=== PATIENT | female | born 1980 | race African-American/Black ===

== ENCOUNTER 2016-11-23 21:38 | Inpatient (IN) | payer BC, OTHER ==
[~2016-11-23] VITALS: Ht 157.5 cm; Wt 141.2 kg
[~2016-11-23 21:38] MED LIST: ACET-704 PO; AMLO1CAP10 PO; LEVO50TA PO; METH250T PO; PNV1TABL25 PO
[2016-11-23] MEDS ORDERED: METOCLOPRAMIDE HCL 10 MG/2 ML VIAL. IV ONE (22:00)
[2016-11-23] MEDS ORDERED: DIPHENHYDRAMINE 50 MG/ML VIAL IVP ONE (22:00)
[2016-11-23] MEDS ORDERED: KETOROLAC TROMETHAMINE 30 MG/ML SYRINGE. IV ONE (22:00)
[2016-11-23] MEDS ORDERED: hydrALAZINE 20 MG/ML VIAL. IVP ONE (22:00)
[2016-11-23] MEDS ORDERED: DEXAMETHASONE SOD PHOS 20 MG/5 ML VIAL. IV ONE (22:00)
--- NOTE | 2016-11-23 22:02 | PHYS DOC ---
Past Medical History Past Medical History: Hypertension Past Surgical History: Tubal ligation Alcohol Use: None Drug Use: None Adult General Chief Complaint Chief Complaint: HEADACHE HPI HPI This is a 36-year-old female with known history of hypertension that has not been taking her medications for the last year. Patient was on methyldopa during her and was on multiple medications prior to her for blood pressure but states she has not followed up since she gave . She states for the last 2 or 3 days she's had significant occipital headache that does radiate somewhat into her frontal area with associated photophobia but no nausea or vomiting. She states she's had a similar headache before approximate 3 years ago. She denies any other history than hypertension. Upon arrival, her blood pressure is not controlled and is 220/120. He is in no acute distress upon my examination. She denies any chest pain or shortness of breath. She denies any dizziness or lightheadedness. She denies any numbness or tingling in her arms or legs. Review of Systems Review of Systems Constitutional: Denies fever or chills [] Eyes: Denies change in visual acuity, redness, or eye pain [] HENT: Denies nasal congestion or sore throat [] Respiratory: Denies cough or shortness of breath [] Cardiovascular: No additional information not addressed in HPI [] GI: Denies abdominal pain, nausea, vomiting, bloody stools or diarrhea [] : Denies dysuria or hematuria [] Musculoskeletal: Denies back pain or joint pain [] Integument: Denies rash or skin lesions [] Neurologic: Has headache, denies focal weakness or sensory changes [] Endocrine: Denies polyuria or polydipsia [] Current Medications Current Medications Current Medications Medications (Trade) Dose Ordered Sig/Sharmaine Start Time Stop Time Status Last Admin Dose Admin Acetaminophen (Tylenol) 650 mg PRN Q4HRS PRN 11/23/16 23:30 11/24/16 23:29 Dexamethasone Sodium Phosphate 10 mg 10 mg 1X ONCE 11/23/16 22:00 11/23/16 22:01 DC 11/23/16 22:48 10 MG Diphenhydramine HCl (Benadryl) 25 mg 1X ONCE 11/23/16 22:00 11/23/16 22:01 DC 11/23/16 22:45 25 MG Fentanyl Citrate (Fentanyl 2ml Vial) 50 mcg PRN Q2HR PRN 11/23/16 23:30 11/24/16 23:29 Hydralazine HCl (Apresoline) 10 mg 1X ONCE 11/23/16 22:00 11/23/16 22:01 DC 11/23/16 22:36 10 MG Ketorolac Tromethamine (Toradol) 30 mg 1X ONCE 11/23/16 22:00 11/23/16 22:01 DC 11/23/16 23:03 30 MG Metoclopramide HCl (Reglan) 10 mg 1X ONCE 11/23/16 22:00 11/23/16 22:01 DC 11/23/16 22:40 10 MG Nicardipine HCl/ Sodium Chloride (Cardene/Iv Sodium Chloride 0.9% 250ml) 270 ml @ 0 mls/hr CONT PRN 11/23/16 23:30 Ondansetron HCl (Zofran) 4 mg PRN Q8HRS PRN 11/23/16 23:30 11/24/16 23:29 Allergies Allergies Allergies Coded Allergies Type Severity Reaction Last Updated Verified No Known Drug Allergies 01/17/16 No Physical Exam Physical Exam Constitutional: Well developed, well nourished, no acute distress, non-toxic appearance. [] HENT: Normocephalic, atraumatic, bilateral external ears normal, oropharynx moist, no oral exudates, nose normal. [] Eyes: PERRLA, EOMI, conjunctiva normal, no discharge. [] Neck: Normal range of motion, no tenderness, supple, no stridor. [] Cardiovascular:Heart rate regular rhythm, no murmur [] Lungs & Thorax: Bilateral breath sounds clear to auscultation [] Abdomen: Bowel sounds normal, soft, no tenderness, no masses, no pulsatile masses. [] Skin: Warm, dry, no erythema, no rash. [] Back: No tenderness, no CVA tenderness. [] Extremities: No tenderness, no cyanosis, no clubbing, ROM intact, no edema. [] Neurologic: Alert and oriented X 3, normal motor function, normal sensory function, no focal deficits noted. [] Psychologic: Affect normal, judgement normal, mood normal. [] Current Patient Data Vital Signs Vital Signs Date Time Temp Pulse Resp B/P Pulse Ox O2 Delivery O2 Flow Rate FiO2 11/23/16 23:23 98 192/92 99 Room Air 11/23/16 21:44 98.0 20 98.0 Lab Values Laboratory Tests Test 11/23/16 22:30 11/23/16 22:37 White Blood Count 7.7x10^3/uL (4.0-11.0) Red Blood Count 4.61x10^6/uL (3.50-5.40) Hemoglobin 10.9g/dL (12.0-15.5) L Hematocrit 34.8% (36.0-47.0) L Mean Corpuscular Volume 76fL (79-100) L Mean Corpuscular Hemoglobin 24pg (25-35) L Mean Corpuscular Hemoglobin Concent 31g/dL (31-37) Red Cell Distribution Width 16.4% (11.5-14.5) H Platelet Count 381x10^3/uL (140-400) Neutrophils (%) (Auto) 56% (31-73) Lymphocytes (%) (Auto) 36% (24-48) Monocytes (%) (Auto) 5% (0-9) Eosinophils (%) (Auto) 2% (0-3) Basophils (%) (Auto) 1% (0-3) Neutrophils # (Auto) 4.3x10^3uL (1.8-7.7) Lymphocytes # (Auto) 2.8x10^3/uL (1.0-4.8) Monocytes # (Auto) 0.4x10^3/uL (0.0-1.1) Eosinophils # (Auto) 0.2x10^3/uL (0.0-0.7) Basophils # (Auto) 0.1x10^3/uL (0.0-0.2) Urine Collection Type Unknown Urine Color Yellow Urine Clarity Clear Urine pH 7.5 Urine Specific [place] 1.015 Urine Protein Negativemg/dL (NEG-TRACE) Urine Glucose (UA) Negativemg/dL (NEG) Urine Ketones (Stick) Negativemg/dL (NEG) Urine Blood Negative (NEG) Urine Nitrite Negative (NEG) Urine Bilirubin Negative (NEG) Urine Urobilinogen Dipstick 1.0mg/dL (0.2 mg/dL) Urine Leukocyte Esterase Trace (NEG) Urine RBC 0/HPF (0-2) Urine WBC 5-10/HPF (0-4) Urine Squamous Epithelial Cells Mod/LPF Urine Bacteria Few/HPF (0-FEW) Urine Mucus Slight/LPF Urine Test Negative (NEG) Sodium Level 143mmol/L (136-145) Potassium Level 3.8mmol/L (3.5-5.1) Chloride Level 105mmol/L (98-107) Carbon Dioxide Level 28mmol/L (21-32) Anion Gap 10 (6-14) Blood Urea Nitrogen 12mg/dL (7-20) Creatinine 0.9mg/dL (0.6-1.0) Estimated GFR (Cockcroft-Gault) 84.8 Glucose Level 99mg/dL (70-99) Calcium Level 8.7mg/dL (8.5-10.1) POC Urine HCG, Qualitative Hcg negative (Negative) Laboratory Tests 11/23/16 22:30 Laboratory Tests 11/23/16 22:30 EKG EKG EkG as interpreted by me shows sinus rhythm with rate of 91 bpm. There is some mild ST abnormalities in V4 to V6 but no obvious ischemic findings. Radiology/Procedures Radiology/Procedures [] Course & Med Decision Making Course & Med Decision Making Pertinent Labs and Imaging studies reviewed. (See chart for details) 36-year-old female with uncontrolled hypertension will be given a dose of hydralazine and an IV migraine cocktail. Laboratory workup will be obtained including CT of her head. I'll reassess her multiple times. I control her pain and get her blood pressure controlled I will start her on low dose of blood pressure medications and give her follow-up instructions with her primary care doctor. If I'm unable to control her headache or her blood pressure I will be admitting her to the hospital. Upon my second reassessment, the patient's headache has improved but her blood pressure has remained extremely elevated 207/103 despite IV hydralazine dose. I will be admitting her for hypertensive urgency. I will order cardene drip and be admitting her to the [facility] under Dr. Healy. The case was discussed with Dr. Healy who agreed to accept the patient for her ongoing elevated blood pressure. Cardene drip was ordered to control her blood pressure. Her laboratory workup has been unremarkable. Pt at this time is refusing head CT because she has significant claustrophobia. Dragon Disclaimer Dragon Disclaimer This electronic medical record was generated, in whole or in part, using a voice recognition dictation system. Departure Departure Impression: Primary Impression: Hypertensive urgency Additional Impression: Headache Disposition: 09 ADMITTED INPATIENT Admitting Physician: Radha Healy Condition: STABLE Referrals: RADHA HEALY MD (PCP) Problem Qualifiers MICHAEL ORTIZ DO Nov 23, 2016 22:02
[2016-11-23 22:38] LABS: BASO # 0.1 x10^3/uL (0.0-0.2); BASO % 1 % (0-3); EOS % 2 % (0-3); HEMATOCRIT 34.8 % (36.0-47.0); HEMOGLOBIN 10.9 g/dL (12.0-15.5); LYMPH # 2.8 x10^3/uL (1.0-4.8); LYMPH % 36 % (24-48); MEAN CORPUSCULAR HEMOGLOBIN 24 pg (25-35); MEAN CORPUSCULAR HGB CONC 31 g/dL (31-37); MEAN CORPUSCULAR VOLUME 76 fL (79-100); MONO % 5 % (0-9); NEUT % 56 % (31-73); PLATELET COUNT 381 x10^3/uL (140-400); RED BLOOD COUNT 4.61 x10^6/uL (3.50-5.40); RED CELL DISTRIBUTION WIDTH 16.4 % (11.5-14.5); WHITE BLOOD COUNT 7.7 x10^3/uL (4.0-11.0)
[2016-11-23 22:50] LABS: CALCIUM 8.7 mg/dL (8.5-10.1); CREATININE 0.9 mg/dL (0.6-1.0); GFR 84.8; POTASSIUM 3.8 mmol/L (3.5-5.1)
[2016-11-23 23:22] LABS: BILIRUBIN,URINE NEGATIVE (NEG); GLUCOSE,URINE NEGATIVE (NEG); NITRITE,URINE NEGATIVE (NEG); PH,URINE 7.5; PROTEIN,URINE NEGATIVE (NEG-TRACE)
[2016-11-23 23:26] LABS: NEG OBC UR NEG; POS OBC UR POS
[2016-11-23] MEDS ORDERED: ONDANSETRON PF 4 MG/2 ML VIAL. IV PRN (23:30)
[2016-11-23] MEDS ORDERED: FENTANYL PF 100 MCG/2 ML VIAL. IV PRN (23:30)
[2016-11-23] MEDS ORDERED: NICARDIPINE HCL 50 MG in IV NORMAL SALINE 250ML 250 ML IV PRN (23:30)
[2016-11-23 23:31] LABS: BACTERIA,URINE FEW /HPF (0-FEW); RBC,URINE 0 /HPF (0-2); SQUAMOUS EPITHELIAL CELL,UR MOD /LPF
[2016-11-24] VITALS (8 sets, daily range): BP systolic 140–180; BP diastolic 74–108
--- NOTE | 2016-11-24 00:56 | ACF ---
Admission Forms Criteria HYPERTENSION Clinical Indications for Admission to Inpatient Care ( Place "X" for any and all applicable criteria): Admission is indicated for ANY ONE of the following(1)(2)(3)(4): [ ]I. Hypertensive emergency, with evidence of acute and progressing target organ disease as indicated by ANY ONE of the following: [ ]a) Hypertensive encephalopathy (eg, confusion, altered mental status) [ ]b) Cerebral infarction [ ]c) Intracranial hemorrhage [ ]d) Myocardial ischemia or infarction [ ]e) Pulmonary edema [ ]f) Aortic dissection [ ]g) Seizure [ ]h) Acute renal insufficiency [ ]i) Papilledema [ ]j) Microangiopathic hemolytic anemia [ ]II. Adrenergic crisis (eg, severe hypertension due to pheochromocytoma crisis, cocaine or amphetamine intoxication, or clonidine withdrawal) [X]III. Severe hypertension (SBP greater than 180 mmHg or DBP greater than 110 mmHg or greater than the 95th percentile for age, gender, and height in pediatric patients) that cannot be controlled (eg, to SBP less than 160 mmHg and DBP less than 100 mmHg in adults) by treatment with oral medication in emergency department or observation care Extended stay beyond goal length of stay may be needed for(11)(12)(13): [ ]a) Persistent hypertensive encephalopathy [ ]b) Continuation of pulmonary edema [ ]c) Recurring or persistent severe hypertension [ ]d) Target organ damage (eg, angina, stroke, aortic dissection) [ ]e) Associated renal insufficiency The original [email or web address] content created by [employer] has been revised. The portions of the content which have been revised are identified through the use of italic text or in bold, and [facility] has neither reviewed nor approved the modified material. All other unmodified content is copyright [facility]. Please see references footnoted in the original [facility] edition 2016 Admission Criteria Met?: Yes JAYDEN LAGUNAS Nov 24, 2016 00:56
[2016-11-24] MEDS ORDERED: hydrALAZINE 20 MG/ML VIAL. IVP PRN (01:15)
[2016-11-24 05:30] LABS: BASO % 0 % (0-3); EOS % 0 % (0-3); HEMATOCRIT 34.9 % (36.0-47.0); HEMOGLOBIN 10.9 g/dL (12.0-15.5); LYMPH # 0.9 x10^3/uL (1.0-4.8); LYMPH % 8 % (24-48); MEAN CORPUSCULAR HEMOGLOBIN 24 pg (25-35); MEAN CORPUSCULAR HGB CONC 31 g/dL (31-37); MEAN CORPUSCULAR VOLUME 75 fL (79-100); MONO % 0 % (0-9); NEUT % 91 % (31-73); PLATELET COUNT 379 x10^3/uL (140-400); RED BLOOD COUNT 4.64 x10^6/uL (3.50-5.40); RED CELL DISTRIBUTION WIDTH 16.4 % (11.5-14.5); WHITE BLOOD COUNT 10.9 x10^3/uL (4.0-11.0)
[2016-11-24 05:51] LABS: CALCIUM 8.9 mg/dL (8.5-10.1); CREATININE 1.1 mg/dL (0.6-1.0); GFR 67.3; POTASSIUM 3.6 mmol/L (3.5-5.1)
--- NOTE | 2016-11-24 06:28 | EKG ---
[facility] [address] [place] [address] Test Date: 2016-11-23 Test Time: 23:37:46 Pat Name: KRISSY CASEY Department: Room: 262 1 Gender: F In[place]: ELIZABETH EMT : 1980 Requested By: MICHAEL ORTIZ Order Number: [id number] Reading MD: Olive Waller Measurements Intervals [place] Rate: 91 P: 68 OK: 134 QRS: 16 QRSD: 90 T: -26 QT: 350 QTc: 432 Interpretive Statements SINUS RHYTHM LEFT ATRIAL ABNORMALITY ST & T ABNORMALITY, CONSIDER INFERIOR ISCHEMIA ABNORMAL ECG Electronically Signed On 11-26-2016 20:11:21 NAIL SETTER by Olive Waller
[2016-11-24] MEDS: ACETAMINOPHEN 325 MG TABLET. PO PRN ×2 (08:28→19:43)
[2016-11-24] MEDS ORDERED: FLU VACC QUAD 2016-17 (36MOS+)/PF 0.5 ML SYRINGE. VAX IM ONE (09:00)
--- NOTE | 2016-11-24 09:41 | PDOC ---
OBJECTIVE Vital Signs Vital Signs Date Time Temp Pulse Resp B/P Pulse Ox O2 Delivery O2 Flow Rate FiO2 11/24/16 07:55 Room Air 11/24/16 07:32 97.8 87 18 156/108 96 Room Air 97.8 11/24/16 03:48 98.5 95 16 180/98 97 Room Air 98.5 11/24/16 02:58 98.2 100 18 180/102 98 Room Air 98.2 11/24/16 02:34 Room Air 11/24/16 00:55 102 154/72 97 Room Air 11/24/16 00:45 102 168/77 95 Room Air 11/24/16 00:35 98 163/75 99 Room Air 11/24/16 00:23 105 169/69 11/24/16 00:14 107 161/88 97 Room Air 11/24/16 00:04 107 187/98 98 Room Air 11/23/16 23:58 98 191/97 98 Room Air 11/23/16 23:54 95 192/97 99 Room Air 11/23/16 23:45 102 191/102 98 Room Air 11/23/16 23:23 98 192/92 99 Room Air 11/23/16 23:03 97 196/91 97 Room Air 11/23/16 22:43 85 207/98 99 Room Air 11/23/16 22:36 100 209/106 11/23/16 22:33 91 224/104 Room Air 11/23/16 21:56 94 209/106 95 Room Air 11/23/16 21:44 98.0 96 20 96 Room Air 98.0 I & O Intake and Output 11/24/16 07:00 Intake Total 200 ml Balance 200 ml Intake Oral 200 ml # Voids 1 ASSESSMENT/PLAN Assessment/Plan [id number] H7P dictated Problems: COMMENT Lab Laboratory Tests Test 11/23/16 22:30 11/23/16 22:37 11/24/16 05:00 White Blood Count 7.7x10^3/uL (4.0-11.0) 10.9x10^3/uL (4.0-11.0) Red Blood Count 4.61x10^6/uL (3.50-5.40) 4.64x10^6/uL (3.50-5.40) Hemoglobin 10.9g/dL (12.0-15.5) 10.9g/dL (12.0-15.5) Hematocrit 34.8% (36.0-47.0) 34.9% (36.0-47.0) Mean Corpuscular Volume 76fL (79-100) 75fL (79-100) Mean Corpuscular Hemoglobin 24pg (25-35) 24pg (25-35) Mean Corpuscular Hemoglobin Concent 31g/dL (31-37) 31g/dL (31-37) Red Cell Distribution Width 16.4% (11.5-14.5) 16.4% (11.5-14.5) Platelet Count 381x10^3/uL (140-400) 379x10^3/uL (140-400) Neutrophils (%) (Auto) 56% (31-73) 91% (31-73) Lymphocytes (%) (Auto) 36% (24-48) 8% (24-48) Monocytes (%) (Auto) 5% (0-9) 0% (0-9) Eosinophils (%) (Auto) 2% (0-3) 0% (0-3) Basophils (%) (Auto) 1% (0-3) 0% (0-3) Neutrophils # (Auto) 4.3x10^3uL (1.8-7.7) 9.9x10^3uL (1.8-7.7) Lymphocytes # (Auto) 2.8x10^3/uL (1.0-4.8) 0.9x10^3/uL (1.0-4.8) Monocytes # (Auto) 0.4x10^3/uL (0.0-1.1) 0.0x10^3/uL (0.0-1.1) Eosinophils # (Auto) 0.2x10^3/uL (0.0-0.7) 0.0x10^3/uL (0.0-0.7) Basophils # (Auto) 0.1x10^3/uL (0.0-0.2) 0.0x10^3/uL (0.0-0.2) Urine Collection Type Unknown Urine Color Yellow Urine Clarity Clear Urine pH 7.5 Urine Specific [place] 1.015 Urine Protein Negativemg/dL (NEG-TRACE) Urine Glucose (UA) Negativemg/dL (NEG) Urine Ketones (Stick) Negativemg/dL (NEG) Urine Blood Negative (NEG) Urine Nitrite Negative (NEG) Urine Bilirubin Negative (NEG) Urine Urobilinogen Dipstick 1.0mg/dL (0.2 mg/dL) Urine Leukocyte Esterase Trace (NEG) Urine RBC 0/HPF (0-2) Urine WBC 5-10/HPF (0-4) Urine Squamous Epithelial Cells Mod/LPF Urine Bacteria Few/HPF (0-FEW) Urine Mucus Slight/LPF Urine Test Negative (NEG) Sodium Level 143mmol/L (136-145) 141mmol/L (136-145) Potassium Level 3.8mmol/L (3.5-5.1) 3.6mmol/L (3.5-5.1) Chloride Level 105mmol/L (98-107) 105mmol/L (98-107) Carbon Dioxide Level 28mmol/L (21-32) 23mmol/L (21-32) Anion Gap 10 (6-14) 13 (6-14) Blood Urea Nitrogen 12mg/dL (7-20) 11mg/dL (7-20) Creatinine 0.9mg/dL (0.6-1.0) 1.1mg/dL (0.6-1.0) Estimated GFR (Cockcroft-Gault) 84.8 67.3 Glucose Level 99mg/dL (70-99) 194mg/dL (70-99) Calcium Level 8.7mg/dL (8.5-10.1) 8.9mg/dL (8.5-10.1) Bedside Urine HCG, Qualitative Hcg negative (Negative) RADHA HEALY MD Nov 24, 2016 09:41
[2016-11-24 10:18] LABS: CHOLESTEROL/HDL RATIO 3.4
[2016-11-24 10:30] LABS: ANISOCYTOSIS PRESENT; HYPOCHROMIA PRESENT; PLT ESTIMATE ADEQUATE (ADEQUATE)
[2016-11-24] MEDS: METOPROLOL SUCC 24HR ER 100 MG TAB.ER.24H. PO SCH (11:09)
[2016-11-24] MEDS: LOSARTAN POTASSIUM 50 MG TABLET. PO SCH (11:10)
[2016-11-24] MEDS: ASPIRIN ENTERIC COATED 81 MG TABLET.DR. PO SCH (11:10)
[2016-11-24] MEDS: AMLODIPINE BESYLATE 10 MG TABLET PO SCH (11:12)
--- NOTE | 2016-11-24 11:25 | HP ---
ADMIT DATE: 11/23/2016 HISTORY OF PRESENT ILLNESS: The patient is a 36-year-old lady who presented to the Emergency Room complaining of headache and hypertension. She does have a previous history of hypertension. She was and had ____ October. She was on methyldopa during . She has not been taking any blood pressure medication. Over the last 3 days, she has been having severe headache in the occipital area radiating into the frontal area. She denies nausea or vomiting. Denies chest pain. She does have dyspnea on exertion. Her blood pressure in the Emergency Room was 220/120. She was not able to have a CT scan of the head due to claustrophobia her headache improved after the blood pressure was down with medication. She denies numbness or tingling in her arms or legs. PAST MEDICAL HISTORY: Significant for hypertension, hypertensive cardiovascular disease. She had a cholecystectomy last year, obesity. She does have gastroesophageal reflux disease, tubal ligation, previous history of UTIs, back pain, anxiety. SOCIAL HISTORY: She is a smoker. She uses alcohol occasionally. Denies other drugs. FAMILY HISTORY: Positive for hypertension. REVIEW OF SYSTEMS: CONSTITUTIONAL: Denies fever or chills. EYES: Denies visual changes. HENT: Denies nasal congestion or sore throat. RESPIRATORY: Denies cough, but does have dyspnea on exertion. CARDIOVASCULAR: Denies chest pain. GASTROINTESTINAL: Denies abdominal pain, nausea, vomiting or diarrhea. GENITOURINARY: Denies dysuria. She does have stress incontinence. MUSCULOSKELETAL: She does have back pain and arthritis. NEUROLOGY: She does have headache that improved after her blood pressure was decreased. She does not have any focal weakness or sensory changes. PHYSICAL EXAMINATION: GENERAL: She is alert and oriented, in no acute distress. HEENT: Her tympanic membranes clear. Pharynx is clear. No sinus tenderness. NECK: Supple. No JVD or bruit or cervical adenopathy. LUNGS: Clear to auscultation. HEART: Regular rate and rhythm. ABDOMEN: Soft, nontender. No organomegaly, no masses, no bruits, no ascites. EXTREMITIES: No edema, clubbing or cyanosis. IMPRESSION: 1. Hypertension emergency and urgency. The patient was on nicardipine drip to control her blood pressure. 2. Obesity. 3. Suspected sleep apnea. 4. Hyperglycemia. We will check hemoglobin A1c and monitor blood sugar. 5. Anemia due to heavy periods. 6. Gastroesophageal reflux disease. RADHA HEALY MD DR: NEAL/ricarda JOB#: [id number] / [id number]
--- NOTE | 2016-11-24 13:59 | CARD ---
APPROVED REPORT EXAM: Two-dimensional and M-mode echocardiogram with Doppler and color Doppler. Other Information Quality : Good INDICATION Hypertension/HCVD RISK FACTORS Obesity 2D DIMENSIONS RVDd2.7 (2.9-3.5cm)Left Atrium(2D)4.5 (1.6-4.0cm) IVSd1.4 (0.7-1.1cm)Aortic Root(2D)2.9 (2.0-3.7cm) LVDd5.2 (3.9-5.9cm)LVOT Diameter2.2 (1.8-2.4cm) PWd1.3 (0.7-1.1cm)LVDs4.0 (2.5-4.0cm) FS (%) 27.5 %SV59.1 ml LVEF(%)55.0 (>50%) Aortic Valve AoV Peak Jaret.163.0cm/sAoV VTI31.9cm AO Peak GR.10.6mmHgLVOT Peak Jaret.129.1cm/s LVOT VTI 25.86cmAO Mean GR.6mmHg SOLE (VMAX)2.82pi9ZSZ (VTI)2.99cm2 Mitral Valve MV E Boqmocul82.2cm/sMV DECEL BPYG248dv MV A Qbftjpob85.3cm/sMV EPM21bo E/A Ratio1.2MVA (PHT)3.59cm2 TDI E/Lateral E'12.3E/Medial E'12.9 Tricuspid Valve TR P. Giufowlg027bi/sRAP ADAZBOKK0ghUu TR Peak Gr.83nsUgZZPP57unFf Pulmonary Vein S1 Mhmzgrjp80.2cm/sD2 Jsmximuh75.8cm/s PVa nzfnjwsk22wwws LEFT VENTRICLE The left ventricle is normal size. There is borderline concentric left ventricular hypertrophy. The l eft ventricular systolic function is normal and the ejection fraction is within normal range. The Eje ction Fraction is 55-60%. There is normal LV segmental wall motion. Transmitral Doppler flow pattern is normal for age. RIGHT VENTRICLE The right ventricle is normal size. The right ventricular systolic function is normal. ATRIA The left atrium is borderline dilated. The right atrium size is normal. The interatrial septum is int act with no evidence for an atrial septal defect or patent foramen ovale as noted on 2-D or Doppler i maging. AORTIC VALVE The aortic valve is normal in structure and function. Doppler and Color Flow revealed trace aortic re gurgitation. There is no significant aortic valvular stenosis. MITRAL VALVE The mitral valve is normal in structure and function. There is no evidence of mitral valve prolapse. There is no mitral valve stenosis. Doppler and Color-flow revealed trace to mild mitral regurgitation . TRICUSPID VALVE The tricuspid valve is normal in structure and function. Doppler and Color Flow revealed trace tricus pid regurgitation. The PA pressure was estimated at 32 mmHg. There is no tricuspid valve stenosis. PULMONIC VALVE The pulmonary valve is normal in structure and function. Doppler and Color Flow revealed trace pulmon ic valvular regurgitation. There is no pulmonic valvular stenosis. GREAT VESSELS The aortic root is normal in size. The ascending aorta is normal in size. The IVC is normal in size a nd collapses >50% with inspiration. PERICARDIAL EFFUSION There is no evidence of significant pericardial effusion. Critical Notification Critical Value: No <Conclusion> The left ventricle is normal size. The left ventricular systolic function is normal and the ejection fraction is within normal range. The Ejection Fraction is 55-60%. There is borderline concentric left ventricular hypertrophy. There is no significant aortic valvular stenosis. Doppler and Color Flow revealed trace aortic regurgitation. Doppler and Color-flow revealed trace to mild mitral regurgitation. Doppler and Color Flow revealed trace tricuspid regurgitation. The PA pressure was estimated at 32 mmHg.
--- NOTE | 2016-11-24 14:22 | RAD ---
EXAM: Chest 2 views. HISTORY: Hypertension, headache, lightheadedness. COMPARISON: 06/10/2014. FINDINGS: Frontal and lateral views of the chest are obtained. A small focal opacity in the right midlung is consistent with atelectasis or mild infiltrate. There is no pneumothorax or pleural effusion. The heart is mildly enlarged. IMPRESSION: 1. Mild atelectasis versus small infiltrate in the right midlung. A signed 2. Mild cardiomegaly.
--- NOTE | 2016-11-24 15:50 | RAD ---
Deep Doppler renal ultrasound, 11/24/2016: History: Hypertension Duplex evaluation of the main renal arteries was performed including grayscale, color-flow and spectral Doppler analysis. No high velocity is seen in either main renal artery to suggest significant stenosis. No parvus/tardus phenomena is seen. The right kidney measures 12.6 cm in length while the left kidney measures 12.2 cm. IMPRESSION: No duplex evidence of significant renal artery stenosis.
[2016-11-24] MEDS: NICOTINE 21MG PATCH. TD SCH (19:46)
[2016-11-24] MEDS: GUAIFENESIN ER 600 MG TABLET.ER PO SCH (21:36)
[2016-11-25 02:42] VITALS: BP 151/90
[2016-11-25 07:00] VITALS: BP 173/98
[2016-11-25] MEDS ORDERED: LOSA50TA2 PO (08:05)
[2016-11-25] MEDS ORDERED: AMLO10TA2 PO (08:05)
[2016-11-25] MEDS ORDERED: METO100T11 PO (08:05)
[2016-11-25] MEDS ORDERED: ASPI81TA9 PO (08:05)
[2016-11-25] MEDS: METOPROLOL SUCC 24HR ER 100 MG TAB.ER.24H. PO SCH (08:30)
[2016-11-25] MEDS: ASPIRIN ENTERIC COATED 81 MG TABLET.DR. PO SCH (08:30)
[2016-11-25 08:31] VITALS: BP 173/98
[2016-11-25] MEDS: AMLODIPINE BESYLATE 10 MG TABLET PO SCH (08:31)
[2016-11-25] MEDS: LOSARTAN POTASSIUM 50 MG TABLET. PO SCH (08:31)
[2016-11-25] MEDS: GUAIFENESIN ER 600 MG TABLET.ER PO SCH (08:31)
[2016-11-25] MEDS: NICOTINE 21MG PATCH. TD SCH (08:35)
[2016-11-25] MEDS ORDERED: INFLUENZA VAX SCREEN BY RX. MC ONE (09:00)
[2016-11-25] MEDS ORDERED: METF500T4 PO (09:16)
--- NOTE | 2016-11-25 09:20 | PDOC ---
SUBJECTIVE Subjective feel ok, no [place] OBJECTIVE Vital Signs Vital Signs Date Time Temp Pulse Resp B/P Pulse Ox O2 Delivery O2 Flow Rate FiO2 11/25/16 08:31 82 173/98 11/25/16 08:31 82 173/98 11/25/16 08:30 82 173/98 11/25/16 07:00 97.6 82 20 173/98 94 Room Air 97.6 11/25/16 02:42 98.7 79 18 151/90 96 Room Air 98.7 11/24/16 23:24 97.8 91 18 140/74 96 Room Air 97.8 11/24/16 19:45 80 169/102 11/24/16 19:24 97.9 81 18 169/102 96 Room Air 97.9 11/24/16 15:45 97.7 80 21 151/90 Room Air 97.7 11/24/16 11:30 98.7 75 18 171/93 95 Room Air 98.7 11/24/16 11:12 87 156/108 11/24/16 11:10 87 156/108 11/24/16 11:09 87 156/108 I & O Intake and Output 11/25/16 07:00 Intake Total 1050 ml Balance 1050 ml Intake Oral 1050 ml # Voids 3 PHYSICAL EXAM Physical Exam no change ASSESSMENT/PLAN Assessment/Plan echo with LVH, no renal artery stenosis, CXR ok, BS with border line DM, home today see discharge med Problems: COMMENT Lab Laboratory Tests Test 11/24/16 09:49 11/24/16 16:31 11/24/16 21:23 11/25/16 08:02 Glucose (Fingerstick) 150mg/dL (70-99) 152mg/dL (70-99) 142mg/dL (70-99) 101mg/dL (70-99) RADHA HEALY MD Nov 25, 2016 09:20
--- NOTE | 2016-11-25 09:20 | PDOC3 ---
Discharge Summary* Date of Admission: Nov 23, 2016 Date of Discharge: Nov 25, 2016 Admitting Diagnosis Problems Medical Problems: (1) Headache Status: Acute (2) Hypertensive urgency Status: Acute Final Diagnosis 1. Hypertension emergency and urgency. difficult to control HTN 2. Obesity. 3. Suspected sleep apnea. for sleep study out pt 4. Hyperglycemia. hemoglobin A1c 5.7 and fasting BS 120 5. Anemia due to heavy periods. 6. Gastroesophageal reflux disease. Problems Medical Problems: (1) Headache Status: Acute (2) Hypertensive urgency Status: Acute Procedures echocardiogram renal artery US CXR Brief Hospital Course Ms. Rangel is a 36 old [sex] who presented with [ ] Disposition/Orders: D/C to Home CONDITION AT DISCHARGE: Improved Diet: 2 gr sodium, Consistent Carbohydrate Scheduled Amlodipine Besylate (Amlodipine Besylate) 10 MG PO DAILY Aspirin (Aspirin Ec) 81 MG PO DAILYWBKFT Losartan Potassium (Cozaar) 100 MG PO DAILY Metformin Hcl (Metformin Hcl) 1 TAB PO DAILY Metoprolol Succinate (Metoprolol Succinate ( Xl )) 100 MG PO DAILY Miscellaneous Medications Info (No Known Medications Prior To Admisstion) 1 EACH [facility] (Reported) FOLLOW UP APPOINTMENT: [address] Healy sleep study out pt Time Spent Total time spent with patient [] minutes for coordination of care, counseling, and education. RADHA HEALY MD Nov 25, 2016 09:20
== END 2016-11-25 12:05 | disposition home or self-care (01) | DRG 305 ==
LOC: ER 21:38 → 2 SOUTH 23:31
PROVIDERS: ADMIT Internal Medicine; ATTEND Internal Medicine
DX: I16.0 Hypertensive urgency (principal); Z68.43 Body mass index [BMI] 50.0-59.9, adult; D64.9 Anemia, unspecified; E66.9 Obesity, unspecified; F17.200 Nicotine dependence, unspecified, uncomplicated; F40.240 Claustrophobia; F41.9 Anxiety disorder, unspecified; I11.9 Hypertensive heart disease without heart failure; R51 Headache; R73.9 Hyperglycemia, unspecified; K21.9 Gastro-esophageal reflux disease without esophagitis; N92.0 Excessive and frequent menstruation with regular cycle; Z82.49 Family history of ischemic heart disease and other diseases of the circulatory system; Z87.440 Personal history of urinary (tract) infections; Z90.49 Acquired absence of other specified parts of digestive tract; Z98.51 Tubal ligation status
CPT/HCPCS: 36415; 71020; 76770; 80048; 80061; 81001; 81025; 82947; 83036; 84443; 85007; 85027; 87086; 90686; 93005; 93306; 96365; 96375; 99406; J0360; J1100; J1200; J1885; J2765; J7050; 99285-25; J7030

== ENCOUNTER 2016-12-27 10:48 | Emergency (ER) | payer OTHER ==
[~2016-12-27] VITALS: Ht 157.5 cm; Wt 136.1 kg
[~2016-12-27 10:48] MED LIST changes: +AMLO10TA2 PO; +ASPI81TA9 PO; +LOSA50TA2 PO; +METF500T4 PO; +METO100T11 PO
--- NOTE | 2016-12-27 11:29 | PHYS DOC ---
Past Medical History Past Medical History: Hypertension Past Surgical History: Cholecystectomy, Tubal ligation Alcohol Use: Rarely Drug Use: None Adult General Chief Complaint Chief Complaint: VAGINAL BLEEDING HPI HPI Patient is a 36 year old female who presents with heavy vaginal bleeding with clots that began yesterday. Patient states she has normal monthly periods and it is time for her period, but her bleeding is much heavier than usual and she has clots. She doesn't have much cramping. She has had a tubal ligation and denies . She said that recently her PCP said that she was anemic and ordered a pelvic ultrasound which is scheduled for 2 days from now. She has never had an excessively heavy period Before. PCP Dr. Healy [employer] Cleaner Dr Lorenzana Review of Systems Review of Systems Constitutional: Denies fever or chills [] Eyes: Denies change in visual acuity, redness, or eye pain [] HENT: Denies nasal congestion or sore throat [] Respiratory: Denies cough or shortness of breath [] Cardiovascular: Denies chest pain GI: Denies abdominal pain, nausea, vomiting, bloody stools or diarrhea [] : As in history of present illness Musculoskeletal: Denies back pain or joint pain [] Integument: Denies rash or skin lesions [] Neurologic: Denies headache, focal weakness or sensory changes [] Allergies Allergies Allergies Coded Allergies Type Severity Reaction Last Updated Verified diphenhydramine Allergy Mild 12/27/16 Yes Physical Exam Physical Exam Constitutional: Well developed, well nourished, no acute distress, non-toxic appearance. [] HENT: Normocephalic, atraumatic, bilateral external ears normal, nose normal. [ ] Eyes: conjunctiva normal, no discharge. [] Neck: Normal range of motion, no stridor. [] Abdomen: Bowel sounds normal, soft, no tenderness, no masses, no pulsatile masses. Pelvic exam: External genitalia normal. Vaginal vault with moderate amount of normal-appearing blood. Cervix appears normal. Bimanual exam: No cervical motion tenderness. Uterus is not enlarged or tender. Adnexa without tenderness or masses. Pelvic exam is normal and benign. Skin: Warm, dry, no erythema, no rash. [] Extremities: No tenderness, no cyanosis, no clubbing, ROM intact, no edema. [] Neurologic: Alert and oriented X 3, normal motor function, normal sensory function, no focal deficits noted. [] Current Patient Data Vital Signs Vital Signs Date Time Temp Pulse Resp B/P Pulse Ox O2 Delivery O2 Flow Rate FiO2 12/27/16 13:24 76 16 137/78 99 Room Air 12/27/16 10:56 97.5 97.5 Lab Values Laboratory Tests Test 12/27/16 10:18 12/27/16 11:28 POC Urine HCG, Qualitative Hcg negative (Negative) POC Hemoglobin 11.2g/dL (12-15) L POC Hematocrit 33% (36-40) L POC Sodium 141mmol/L (135-145) POC Potassium 4.3mmol/L (3.5-5.0) POC Chloride 104mmol/L (98-110) POC Total CO2 24mmol/L (23-32) Anion Gap 18mmol/L (6-14) H POC Blood Urea Nitrogen 8mg/dL (8-26) POC Creatinine 0.8mg/dL (0.5-1.4) Glucose Level 90mg/dL (70-99) POC Ionized Calcium (Mikael) 1.13mmol/L (1.13-1.32) Laboratory Tests 12/27/16 11:28 EKG EKG [] Radiology/Procedures Radiology/Procedures [] Course & Med Decision Making Course & Med Decision Making Pertinent Labs and Imaging studies reviewed. (See chart for details) Orthostatic vital signs: Supine 140/67, HR 69 Standing 148/78, HR 86 I-STAT hemoglobin 11.2, hematocrit 33. test is negative. Pelvic exam is unremarkable. 36-year-old female presents with heavy vaginal bleeding that began yesterday. She is not and is hemodynamically stable. I discussed the case with Dr. Lorenzana, her [employer] HELPER doctor. He advised to have her take ibuprofen 800 mg 3 times a day, [id number] iron, call the office for follow-up appointment. He does not advise any hormone treatment at this time. I discussed this with the patient who is stable for discharge. [] Dragon Disclaimer Dragon Disclaimer This electronic medical record was generated, in whole or in part, using a voice recognition dictation system. Departure Departure Impression: Primary Impression: Menorrhagia Disposition: 01 HOME, SELF-CARE Condition: STABLE Referrals: RADHA HEALY MD (PCP) SHERRY LORENZANA Jr, MD Additional Instructions: As we discussed, sometimes people have excessively heavy periods and sometimes need some type of treatment, other times do not. I discussed your situation with Dr. Lorenzana and he recommends the following: Drink plenty of fluids. Purchase an aeef-sok-gdwedso iron supplement and take one daily. Be sure to keep these out of the reach of children. Purchase pkvb-lfy-wzdcfky ibuprofen and take 800 mg (4 pills) 3 times a day until you're bleeding slows down or stops. Call the office today for an appointment in 2 weeks for recheck. You can go ahead and keep the appointment for ultrasound that you already have. If you become weak and lightheaded, that could be a sign that you lost too much blood, return to emergency for recheck. MODESTO CRAIG MD Dec 27, 2016 11:28
[2016-12-27 11:38] LABS: POTASSIUM ISTAT 4.3 mmol/L (3.5-5.0)
[2016-12-27 13:24] VITALS: BP 137/78
== END 2016-12-27 13:29 | disposition home or self-care (01) ==
LOC: ER 10:48
DX: N92.0 Excessive and frequent menstruation with regular cycle (principal); I10 Essential (primary) hypertension; Z90.49 Acquired absence of other specified parts of digestive tract; Z98.51 Tubal ligation status; Z88.8 Allergy status to other drugs, medicaments and biological substances
CPT/HCPCS: 80047; 81025; 99283

== ENCOUNTER 2017-06-19 13:03 | Inpatient (IN) | payer OTHER ==
[~2017-06-19] VITALS: Ht 157.5 cm; Wt 145.2 kg
[~2017-06-19 13:03] MED LIST changes: +ASPI-612 PO; -ASPI81TA9 PO; +METO-247 PO; -METO100T11 PO
--- NOTE | 2017-06-19 13:39 | PHYS DOC ---
Past Medical History Past Medical History: Hypertension Past Surgical History: Cholecystectomy, Tubal ligation Alcohol Use: Rarely Drug Use: None Adult General Chief Complaint Chief Complaint: CHEST PAIN HPI HPI 37-year-old female presenting to the emergency department today with chest pain that has been intermittent for about 12 hours. She describes the pain as a pressure that is nonradiating intermittent and associated with nausea and sweatiness of the skin. She denies having history of diabetes. She reports having high blood pressure. Normal cholesterol reportedly. She has smoked for about 15 years. She reports family history of heart disease. She denies unilateral leg swelling or hemoptysis. Review of systems is negative for abdominal pain fevers chills or cough. All other review of systems is negative unless otherwise noted in history of present illness. ED course: 37-year-old female presenting to the emergency department today with chest pain. EKG obtained and reviewed by myself. Vital signs reviewed. Blood work obtained. Chest x-ray obtained. Workup unremarkable. Chest pain improved while in the emergency department. Heart score calculated to be 4. Patient was then admitted for chest pain rule out, further evaluation workup and care. Review of Systems Review of Systems SEE ABOVE. Current Medications Current Medications Current Medications Medications (Trade) Dose Ordered Sig/Sharmaine Start Time Stop Time Status Last Admin Dose Admin Aspirin (Children'S Aspirin) 324 mg 1X ONCE 06/19/17 13:45 06/19/17 13:46 DC 06/19/17 13:54 324 MG Morphine Sulfate 2 mg PRN Q1HR PRN 06/19/17 13:45 Nitroglycerin (Nitrostat) 0.4 mg PRN Q5MIN PRN 06/19/17 13:45 Allergies Allergies Allergies Coded Allergies Type Severity Reaction Last Updated Verified diphenhydramine Allergy Mild 12/27/16 Yes Physical Exam Physical Exam SEE ABOVE Constitutional: Well developed, well nourished, no acute distress, non-toxic appearance. [] HENT: Normocephalic, atraumatic, bilateral external ears normal, oropharynx moist, no oral exudates, nose normal. [] Eyes: PERRLA, EOMI, conjunctiva normal, no discharge. [] Neck: Normal range of motion, no tenderness, supple, no stridor. [] Cardiovascular:Heart rate regular rhythm, no murmur [] Lungs & Thorax: Bilateral breath sounds clear to auscultation [] Abdomen: Bowel sounds normal, soft, no tenderness, no masses, no pulsatile masses. [] Skin: Warm, dry, no erythema, no rash. [] Back: No tenderness, no CVA tenderness. [] Extremities: No tenderness, no cyanosis, no clubbing, ROM intact, no edema. [] Neurologic: Alert and oriented X 3, normal motor function, normal sensory function, no focal deficits noted. [] Psychologic: Affect normal, judgement normal, mood normal. [] Current Patient Data Vital Signs Vital Signs Date Time Temp Pulse Resp B/P (MAP) Pulse Ox O2 Delivery O2 Flow Rate FiO2 06/19/17 13:10 98.4 93 24 172/100 (124) 100 Room Air 98.4 Lab Values Laboratory Tests Test 06/19/17 13:30 White Blood Count 10.0 x10^3/uL (4.0-11.0) Red Blood Count 4.56 x10^6/uL (3.50-5.40) Hemoglobin 9.8 g/dL (12.0-15.5) L Hematocrit 31.8 % (36.0-47.0) L Mean Corpuscular Volume 70 fL (79-100) L Mean Corpuscular Hemoglobin 22 pg (25-35) L Mean Corpuscular Hemoglobin Concent 31 g/dL (31-37) Red Cell Distribution Width 18.1 % (11.5-14.5) H Platelet Count 404 x10^3/uL (140-400) H Neutrophils (%) (Auto) 61 % (31-73) Lymphocytes (%) (Auto) 29 % (24-48) Monocytes (%) (Auto) 6 % (0-9) Eosinophils (%) (Auto) 2 % (0-3) Basophils (%) (Auto) 1 % (0-3) Neutrophils # (Auto) 6.2 x10^3uL (1.8-7.7) Lymphocytes # (Auto) 2.9 x10^3/uL (1.0-4.8) Monocytes # (Auto) 0.6 x10^3/uL (0.0-1.1) Eosinophils # (Auto) 0.2 x10^3/uL (0.0-0.7) Basophils # (Auto) 0.1 x10^3/uL (0.0-0.2) Platelet Estimate Pending Sodium Level 142 mmol/L (136-145) Potassium Level 3.6 mmol/L (3.5-5.1) Chloride Level 104 mmol/L (98-107) Carbon Dioxide Level 29 mmol/L (21-32) Anion Gap 9 (6-14) Blood Urea Nitrogen 12 mg/dL (7-20) Creatinine 1.3 mg/dL (0.6-1.0) H Estimated GFR (Cockcroft-Gault) 55.2 Glucose Level 108 mg/dL (70-99) H Calcium Level 9.0 mg/dL (8.5-10.1) Total Bilirubin 0.2 mg/dL (0.2-1.0) Direct Bilirubin < 0.1 mg/dL (0.0-0.2) Aspartate Amino Transferase (AST) 14 U/L (15-37) L Alanine Aminotransferase (ALT) 21 U/L (14-59) Alkaline Phosphatase 120 U/L (46-116) H Troponin I Quantitative < 0.017 ng/mL (0.000-0.055) Total Protein 7.7 g/dL (6.4-8.2) Albumin 3.4 g/dL (3.4-5.0) Lipase 170 U/L (73-393) Laboratory Tests 06/19/17 13:30 Laboratory Tests 06/19/17 13:30 EKG EKG [] Radiology/Procedures Radiology/Procedures [] Course & Med Decision Making Course & Med Decision Making Pertinent Labs and Imaging studies reviewed. (See chart for details) [] Dragon Disclaimer Dragon Disclaimer This electronic medical record was generated, in whole or in part, using a voice recognition dictation system. Departure Departure Impression: Primary Impression: Chest pain Disposition: ADMITTED INPATIENT Admitting Physician: Radha Healy Condition: STABLE Referrals: RADHA HEALY MD (PCP) ADAM ROMERO MD Jun 19, 2017 13:39
[2017-06-19] MEDS ORDERED: ASPIRIN CHEWABLE 81 MG TABLET. PO ONE (13:45)
[2017-06-19] MEDS ORDERED: NITROGLYCERIN SUBLINGUAL 0.4 MG BOTTLE OF 25. SL PRN (13:45)
[2017-06-19] MEDS ORDERED: MORPHINE SULFATE 2 MG/ML DISP.SYRIN. IV PRN (13:45)
--- NOTE | 2017-06-19 13:48 | EKG ---
[facility] [address] [place] [address] Test Date: 2017-06-19 Test Time: 13:13:31 Pat Name: KRISSY CASEY Department: Room: Gender: F [employer]: : 1980 Requested By: ADAM ROMERO Order Number: [id number] Reading MD: Chi Stein Measurements Intervals [place] Rate: 102 P: 59 ND: 132 QRS: 2 QRSD: 84 T: 28 QT: 328 QTc: 432 Interpretive Statements SINUS TACHYCARDIA Electronically Signed On 06-20-2017 18:07:30 CDT by Chi Stein
--- NOTE | 2017-06-19 13:51 | RAD ---
Indication chest pain. A single view of the chest was obtained and is compared to a study 11/24/2016. Heart size is mildly enlarged but unchanged. There is no congestive heart failure focal infiltrate significant pleural fluid collection or pneumothorax. Bony structures appear grossly intact. IMPRESSION: No acute or focal process seen. Heart size mildly enlarged but unchanged
[2017-06-19 13:55] LABS: BASO # 0.1 x10^3/uL (0.0-0.2); BASO % 1 % (0-3); EOS % 2 % (0-3); HEMATOCRIT 31.8 % (36.0-47.0); HEMOGLOBIN 9.8 g/dL (12.0-15.5); LYMPH # 2.9 x10^3/uL (1.0-4.8); LYMPH % 29 % (24-48); MEAN CORPUSCULAR HEMOGLOBIN 22 pg (25-35); MEAN CORPUSCULAR HGB CONC 31 g/dL (31-37); MEAN CORPUSCULAR VOLUME 70 fL (79-100); MONO % 6 % (0-9); NEUT % 61 % (31-73); PLATELET COUNT 404 x10^3/uL (140-400); RED BLOOD COUNT 4.56 x10^6/uL (3.50-5.40); RED CELL DISTRIBUTION WIDTH 18.1 % (11.5-14.5)
[2017-06-19 14:18] LABS: CREATININE 1.3 mg/dL (0.6-1.0); GFR 55.2; POTASSIUM 3.6 mmol/L (3.5-5.1)
[2017-06-19 14:24] LABS: ALBUMIN 3.4 g/dL (3.4-5.0); ALK PHOS 120 U/L (46-116); ALT (SGPT) 21 U/L (14-59); AST (SGOT) 14 U/L (15-37); DIRECT BILIRUBIN < 0.1 mg/dL (0.0-0.2); TOTAL BILIRUBIN 0.2 mg/dL (0.2-1.0); TOTAL PROTEIN 7.7 g/dL (6.4-8.2)
[2017-06-19] MEDS ORDERED: MORPHINE SULFATE 4 MG/ML DISP.SYRIN. IV PRN (14:45)
[2017-06-19] MEDS ORDERED: ONDANSETRON PF 4 MG/2 ML VIAL. IV PRN (14:45)
[2017-06-19 15:07] LABS: PLT ESTIMATE ADEQUATE (ADEQUATE)
[2017-06-19 15:08] LABS: HYPOCHROMIA PRESENT; MICROCYTOSIS PRESENT
[2017-06-19] MEDS ORDERED: INFLUENZA VAX SCREEN BY RX. MC ONE (18:00)
[2017-06-19] MEDS ORDERED: FLU VACC QS2017-18 (36MOS+)/PF 0.5 ML SYRINGE. VAX IM ONE (18:00)
[2017-06-19 19:00] VITALS: BP 140/82
[2017-06-19] MEDS ORDERED: TRIA1TAB3 PO (19:32)
[2017-06-19] MEDS ORDERED: CETI10TA16 PO (19:32)
[2017-06-19] MEDS ORDERED: fentaNYL PF VIAL 100 MCG/2 ML VIAL IV PRN (19:45)
[2017-06-19] MEDS ORDERED: LOSARTAN POTASSIUM 50 MG TABLET. PO SCH (20:00)
[2017-06-19] MEDS: CETIRIZINE HCL 10 MG TABLET. PO SCH (20:17)
[2017-06-19] MEDS: amLODIPine BESYLATE 10 MG TABLET PO SCH (20:17)
[2017-06-19] MEDS ORDERED: ACETAMINOPHEN/CODEINE 300/30MG TABLET. PO PRN ×2 (20:30)
[2017-06-19 22:48] VITALS: BP 139/68
[2017-06-20] VITALS (7 sets, daily range): BP systolic 112–171; BP diastolic 59–97
[2017-06-20 05:32] LABS: BASO # 0.1 x10^3/uL (0.0-0.2); BASO % 1 % (0-3); EOS % 4 % (0-3); HEMATOCRIT 30.4 % (36.0-47.0); HEMOGLOBIN 9.7 g/dL (12.0-15.5); LYMPH # 3.4 x10^3/uL (1.0-4.8); LYMPH % 41 % (24-48); MEAN CORPUSCULAR HEMOGLOBIN 22 pg (25-35); MEAN CORPUSCULAR HGB CONC 32 g/dL (31-37); MEAN CORPUSCULAR VOLUME 68 fL (79-100); MONO % 6 % (0-9); NEUT % 49 % (31-73); PLATELET COUNT 399 x10^3/uL (140-400); RED BLOOD COUNT 4.48 x10^6/uL (3.50-5.40); RED CELL DISTRIBUTION WIDTH 18.1 % (11.5-14.5); WHITE BLOOD COUNT 8.4 x10^3/uL (4.0-11.0)
[2017-06-20 06:39] LABS: CALCIUM 8.7 mg/dL (8.5-10.1); CREATININE 1.1 mg/dL (0.6-1.0); GFR 66.9; POTASSIUM 3.6 mmol/L (3.5-5.1)
[2017-06-20] MEDS: ASPIRIN ENTERIC COATED 81 MG TABLET.DR. PO SCH (08:00)
--- NOTE | 2017-06-20 08:49 | PDOC1 ---
History and Physical Date of Admission Date of Admission 06/20/17 Identification/Chief Complaint Chief Complaint Chest pain Problems: Source Source: Chart review, Patient History of Present Illness History of Present Illness 37-year-old female presenting to the emergency department today with chest pain that has been intermittent for about 12 hours. She describes the pain as a pressure that is nonradiating intermittent and associated with nausea and sweatiness of the skin pain is worse with exertion and usually is relieved by rest, with exertion she describes a feeling of being lightheaded and feeling about to faint, symptoms has been present to lesser degrees for the last couple months, she reports a trip to [place] a few weeks ago but she denies any pain in the calf area, on the way back she reports having swelling in the lower extremities but not necessarily any calf pain. She does have several risk factors for coronary artery disease, she also is anemic and reports metromenorrhagia that has been going on for a few years apparently has been seen at the emergency room several times for vaginal bleeding, she also complains of abdominal lump that usually can be pushed back in she noticed several months ago as well, it is not necessarily what brought her in to the emergency room this time Past Medical History Cardiovascular: HTN, Hyperlipidemia Pulmonary: Other (sleep apnea) GI: GERD Heme/Onc: Anemia NOS Infectious disease: No pertinent hx Renal/: UTI Endocrine: Diabetes Dermatology: No pertinent hx Past Surgical History Past Surgical History: Cholecystectomy, Tubal Ligation Family History Family History: Diabetes, Heart Disease, Hypertension Social History Smoke: 1 pack per day ALCOHOL: social Drugs: None Current Problem List Problem List Problems Medical Problems: (1) Chest pain Status: Acute Current Medications Current Medications Current Medications Medications (Trade) Dose Ordered Sig/Sharmaine Start Time Stop Time Status Last Admin Dose Admin Acetaminophen/ Codeine Phosphate (Tylenol #3) 2 tab PRN Q4HRS PRN 06/19/17 20:30 06/19/17 20:39 2 TAB Amlodipine Besylate (Norvasc) 10 mg DAILY 06/19/17 20:00 06/19/17 20:17 10 MG Aspirin (Children'S Aspirin) 324 mg 1X ONCE 06/19/17 13:45 06/19/17 13:46 DC 06/19/17 13:54 324 MG Aspirin (Ecotrin) 81 mg [id number] 06/20/17 08:00 Cetirizine HCl (ZyrTEC) 10 mg HS 06/19/17 21:00 06/19/17 20:17 10 MG Fentanyl Citrate (Fentanyl 2ml Vial) 50 mcg PRN Q2HR PRN 06/19/17 19:45 Influenza Virus Vaccine Quadrival (Fluarix Quad [id number] Syringe) 0.5 ml ONCE ONCE 06/19/17 18:00 06/19/17 18:01 DC 06/19/17 20:20 0.5 ML Info (Do NOT chart on this placeholder) 0.5 each 1X ONCE 06/19/17 18:00 06/19/17 18:01 UNV Losartan Potassium (Cozaar) 100 mg DAILY 06/19/17 20:00 06/19/17 20:16 100 MG Metformin HCl (Glucophage) 500 mg DAILY 06/20/17 09:00 Morphine Sulfate 2 mg PRN Q2HR PRN 06/19/17 14:45 06/19/17 20:29 DC Nitroglycerin (Nitrostat) 0.4 mg PRN Q5MIN PRN 06/19/17 13:45 06/19/17 14:36 0.4 MG Ondansetron HCl (Zofran) 4 mg PRN Q8HRS PRN 06/19/17 14:45 06/20/17 14:44 Allergies Allergies Allergies Coded Allergies Type Severity Reaction Last Updated Verified diphenhydramine Allergy Mild 12/27/16 Yes morphine Adverse Reaction Intermediate 06/20/17 Yes ROS Review of System CONSTITUTIONAL: No fever or chills EYES: No recent changes SKIN: No rash or itching CARDIOVASCULAR: see HPI RESPIRATORY: See history of present illness GASTROINTESTINAL: No nausea, vomiting or abdominal pain NEUROLOGICAL: No headaches or weakness ENDOCRINE: No cold or heat intolerance GENITOURINARY: No urgency or frequency of urination MUSCULOSKELETAL: No back pain or joint pain LYMPHATICS: No enlarged lymph nodes Physical Exam Physical Exam GEN.: No apparent distress. Alert and oriented. HEENT: Head is normocephalic, atraumatic NECK: Supple. LUNGS: Clear to auscultation. HEART: RRR, S1, S2 present. Peripheral pulses intact ABDOMEN: Soft, . Positive bowel sounds, a lump under the umbilical area that can be retracted with his pressure minimal pain EXTREMITIES: Without any cyanosis. NEUROLOGIC: Normal speech, normal tone PSYCHIATRIC: Normal affect, normal mood. SKIN: No ulcerations Vitals Vitals Vital Signs Date Time Temp Pulse Resp B/P (MAP) Pulse Ox O2 Delivery O2 Flow Rate FiO2 06/20/17 02:56 97.5 80 18 112/59 (76) 97 Room Air 97.5 Labs Labs Laboratory Tests Test 06/19/17 13:30 06/19/17 21:00 06/20/17 03:00 White Blood Count 10.0 x10^3/uL (4.0-11.0) 8.4 x10^3/uL (4.0-11.0) Red Blood Count 4.56 x10^6/uL (3.50-5.40) 4.48 x10^6/uL (3.50-5.40) Hemoglobin 9.8 g/dL (12.0-15.5) 9.7 g/dL (12.0-15.5) Hematocrit 31.8 % (36.0-47.0) 30.4 % (36.0-47.0) Mean Corpuscular Volume 70 fL (79-100) 68 fL (79-100) Mean Corpuscular Hemoglobin 22 pg (25-35) 22 pg (25-35) Mean Corpuscular Hemoglobin Concent 31 g/dL (31-37) 32 g/dL (31-37) Red Cell Distribution Width 18.1 % (11.5-14.5) 18.1 % (11.5-14.5) Platelet Count 404 x10^3/uL (140-400) 399 x10^3/uL (140-400) Neutrophils (%) (Auto) 61 % (31-73) 49 % (31-73) Lymphocytes (%) (Auto) 29 % (24-48) 41 % (24-48) Monocytes (%) (Auto) 6 % (0-9) 6 % (0-9) Eosinophils (%) (Auto) 2 % (0-3) 4 % (0-3) Basophils (%) (Auto) 1 % (0-3) 1 % (0-3) Neutrophils # (Auto) 6.2 x10^3uL (1.8-7.7) 4.2 x10^3uL (1.8-7.7) Lymphocytes # (Auto) 2.9 x10^3/uL (1.0-4.8) 3.4 x10^3/uL (1.0-4.8) Monocytes # (Auto) 0.6 x10^3/uL (0.0-1.1) 0.5 x10^3/uL (0.0-1.1) Eosinophils # (Auto) 0.2 x10^3/uL (0.0-0.7) 0.3 x10^3/uL (0.0-0.7) Basophils # (Auto) 0.1 x10^3/uL (0.0-0.2) 0.1 x10^3/uL (0.0-0.2) Platelet Estimate Adequate (ADEQUATE) Hypochromasia Present Microcytosis Present Sodium Level 142 mmol/L (136-145) 141 mmol/L (136-145) Potassium Level 3.6 mmol/L (3.5-5.1) 3.6 mmol/L (3.5-5.1) Chloride Level 104 mmol/L (98-107) 105 mmol/L (98-107) Carbon Dioxide Level 29 mmol/L (21-32) 26 mmol/L (21-32) Anion Gap 9 (6-14) 10 (6-14) Blood Urea Nitrogen 12 mg/dL (7-20) 11 mg/dL (7-20) Creatinine 1.3 mg/dL (0.6-1.0) 1.1 mg/dL (0.6-1.0) Estimated GFR (Cockcroft-Gault) 55.2 66.9 Glucose Level 108 mg/dL (70-99) 112 mg/dL (70-99) Calcium Level 9.0 mg/dL (8.5-10.1) 8.7 mg/dL (8.5-10.1) Total Bilirubin 0.2 mg/dL (0.2-1.0) Direct Bilirubin < 0.1 mg/dL (0.0-0.2) Aspartate Amino Transf (AST/SGOT) 14 U/L (15-37) Alanine Aminotransferase (ALT/SGPT) 21 U/L (14-59) Alkaline Phosphatase 120 U/L (46-116) Troponin I Quantitative < 0.017 ng/mL (0.000-0.055) < 0.017 ng/mL (0.000-0.055) < 0.017 ng/mL (0.000-0.055) Total Protein 7.7 g/dL (6.4-8.2) Albumin 3.4 g/dL (3.4-5.0) Lipase 170 U/L (73-393) Laboratory Tests Test 06/19/17 13:30 06/19/17 21:00 06/20/17 03:00 White Blood Count 10.0 x10^3/uL (4.0-11.0) 8.4 x10^3/uL (4.0-11.0) Red Blood Count 4.56 x10^6/uL (3.50-5.40) 4.48 x10^6/uL (3.50-5.40) Hemoglobin 9.8 g/dL (12.0-15.5) 9.7 g/dL (12.0-15.5) Hematocrit 31.8 % (36.0-47.0) 30.4 % (36.0-47.0) Mean Corpuscular Volume 70 fL (79-100) 68 fL (79-100) Mean Corpuscular Hemoglobin 22 pg (25-35) 22 pg (25-35) Mean Corpuscular Hemoglobin Concent 31 g/dL (31-37) 32 g/dL (31-37) Red Cell Distribution Width 18.1 % (11.5-14.5) 18.1 % (11.5-14.5) Platelet Count 404 x10^3/uL (140-400) 399 x10^3/uL (140-400) Neutrophils (%) (Auto) 61 % (31-73) 49 % (31-73) Lymphocytes (%) (Auto) 29 % (24-48) 41 % (24-48) Monocytes (%) (Auto) 6 % (0-9) 6 % (0-9) Eosinophils (%) (Auto) 2 % (0-3) 4 % (0-3) Basophils (%) (Auto) 1 % (0-3) 1 % (0-3) Neutrophils # (Auto) 6.2 x10^3uL (1.8-7.7) 4.2 x10^3uL (1.8-7.7) Lymphocytes # (Auto) 2.9 x10^3/uL (1.0-4.8) 3.4 x10^3/uL (1.0-4.8) Monocytes # (Auto) 0.6 x10^3/uL (0.0-1.1) 0.5 x10^3/uL (0.0-1.1) Eosinophils # (Auto) 0.2 x10^3/uL (0.0-0.7) 0.3 x10^3/uL (0.0-0.7) Basophils # (Auto) 0.1 x10^3/uL (0.0-0.2) 0.1 x10^3/uL (0.0-0.2) Platelet Estimate Adequate (ADEQUATE) Hypochromasia Present Microcytosis Present Sodium Level 142 mmol/L (136-145) 141 mmol/L (136-145) Potassium Level 3.6 mmol/L (3.5-5.1) 3.6 mmol/L (3.5-5.1) Chloride Level 104 mmol/L (98-107) 105 mmol/L (98-107) Carbon Dioxide Level 29 mmol/L (21-32) 26 mmol/L (21-32) Anion Gap 9 (6-14) 10 (6-14) Blood Urea Nitrogen 12 mg/dL (7-20) 11 mg/dL (7-20) Creatinine 1.3 mg/dL (0.6-1.0) 1.1 mg/dL (0.6-1.0) Estimated GFR (Cockcroft-Gault) 55.2 66.9 Glucose Level 108 mg/dL (70-99) 112 mg/dL (70-99) Calcium Level 9.0 mg/dL (8.5-10.1) 8.7 mg/dL (8.5-10.1) Total Bilirubin 0.2 mg/dL (0.2-1.0) Direct Bilirubin < 0.1 mg/dL (0.0-0.2) Aspartate Amino Transf (AST/SGOT) 14 U/L (15-37) Alanine Aminotransferase (ALT/SGPT) 21 U/L (14-59) Alkaline Phosphatase 120 U/L (46-116) Troponin I Quantitative < 0.017 ng/mL (0.000-0.055) < 0.017 ng/mL (0.000-0.055) < 0.017 ng/mL (0.000-0.055) Total Protein 7.7 g/dL (6.4-8.2) Albumin 3.4 g/dL (3.4-5.0) Lipase 170 U/L (73-393) VTE Prophylaxis Ordered VTE Prophylaxis Devices: Yes VTE Pharmacological Prophylaxi: Yes Assessment/Plan Assessment/Plan 1-exertional chest pain, her troponin and serial enzymes are negative, consulted cardiology, will check CT chest to rule out PE was a history of recent travel, no evidence of DVT on the lower extremities at present time 2-morbid obesity and sleep apnea 3-borderline diabetes mellitus 4-hypertension 5-smoker 6-anemia probably due to metromenorrhagia likely iron deficiency 7-abdominal wall hernia RADHA HEALY MD Jun 20, 2017 08:49
[2017-06-20] MEDS ORDERED: metFORMIN 500 MG TABLET PO SCH (09:00)
[2017-06-20] MEDS: amLODIPine BESYLATE 10 MG TABLET PO SCH ×2 (09:00→11:48)
[2017-06-20] MEDS ORDERED: IOHEXOL 240 MG/ML 50ML VIAL. PO ONE (09:45)
[2017-06-20] MEDS ORDERED: CONTRAST GIVEN MC PRN (09:45)
[2017-06-20] MEDS ORDERED: IOHEXOL 300 MG/ML 75 ML VIAL IV ONE (09:45)
--- NOTE | 2017-06-20 10:10 | ACF ---
Admit Criteria Forms Admit Criteria Forms Admit Criteria Forms CARDIOLOGY GRG Clinical Indications for Admission to Inpatient Care ( [place]/check or initial the applicable condition/criteria) Hospital admission is needed for appropriate care of the patient because of ANY ONE of the following: [ ] I. Hemodynamic instability as indicated by ALL of the following (1)(2)(3) (4)(5)(6)(7)(8)(9)(10) [ ]a) Vital sign abnormality not readily corrected by appropriate treatment with 12-24 hours for ANY ONE: [ ]i) Hypotension that persists despite appropriate treatment (eg, volume repletion) [ ]ii) Tachycardiathat persists despite appropriate tx ( e.g., analgesia, fluids, sedation as indicated [ ]iii) Orthostatic vital sign changes that persists despite appropriate treatment (eg, volume repletion) [ ]b) Vital sign abnormailty that is severe indicated by ANY ONE of the following: [ ]i) Inadequate perfusion indicated by ANY ONE of the following: [ ] 1) Lactic acidosis (> 2 mmol/L) [ ] 2) New abnormal capillary refill (> 3 seconds) [ ] 3) Reduced urine output [ ] 4) New altered mental status [ ] 5) Myocardial Ischemia [ ] 6) Other metabolic acidosis (arterial pH <7.35 ) not otherwise explained. [ ]ii) Mean arterial pressure[A] less than 60 mm Hg [ ]iii) Mean arterial pressure[A] less than 70 mm Hg after 30 minutes of appropriate treatment (eg, fluid resuscitation) [ ]iv) Sustained heart rate greater than 120 beats per minute in adult or child 6 years or older[B] [ ]v) IV inotropic or vasopressor medication required to maintain adequate blood pressure or perfusion [ ] II. Severe heart failure as indicated by ANY ONE of the following(17)(18) [ ]a) Respiratory distress [ ]b) Hypotension [ ]c) Debilitating anasarca refractory to therapy (eg, tissue breakdown with infection)[C](19) [ ]d) Cardiac arrhythmias of immediate concern [ ]e) Myocardial ischemia [ ] III. Cardiac arrhythmias or findings of immediate concern indicated by ANY ONE of the following (21)(22): [ ] a) Heart rhythms that are inherently dangerous or unstable indicated by ANY ONE of the following (23)(24)(25): [ ] i) Resuscitated ventricular fibrillation or cardiac arrest [ ] ii) Ventricular escape rhythm [ ] iii) Sustained ventricular tachycardia (30 seconds or more of ventricular rhythm at greater than 100 beats per minute) [ ] iv) Nonsustained ventricular tachycardia and ANY ONE of the following: [ ] 1) Suspected cardiac ischemia as cause or consequence of ventricular tachycardia [ ] 2) Acute myocarditis [ ] b) Unstable cardiac conduction defects indicated by ANY ONE of the following(25)(26)(27) [ ] i) Type II second-degree atrioventricular block [ ]ii) Third-degree atrioventricular block [ ]iii) New-onset left bundle branch block with suspected myocardial ischemia [ ]c) Any heart rhythm and ANY ONE of the following (23)(24)(28)(29) (30) [ ] i) Continuous long-term ECG monitoring needed (e.g., initiation of drug requiring monitoring for more than 24 hours) [ ] ii) Patient has automatic implanted cardioverter defibrillator that is repeatedly firing, malfunctioning, or in need of immediate adjustment of settings beyond the scope of ambulatory or observation care [ ]d) Heart rhythms of concern due to ANY ONE of the following: [ ] i) Hypotension [ ] ii) Respiratory distress [ ] iii) Association with other significant symptoms (e.g., bradycardia with syncope or ongoing dizziness, supraventricular tachycardia with chest pain (28)(29)(31) [ ] IV. Monitoring for cardiac contusion beyond the scope of observation care needed [A](32)(33)(34) [ ] V. Surgical or device complication (e.g., valve replacement complication , ICD disfunction or pacemaker dysfunction) (49)(50)(51)(52)(53)(54) [ ] . Inpatient palliative care needed. [F](51)(52) Also use Inpatient Palliative Care Criteria [ ] VII. Nonbacterial thrombotic (marantic) endocarditis(43)(44)(55)(56)(57) [X ] VIII. Cardiology condition, symptom, or finding for which emergency and observation care has failed or are not considered appropriate. [ ] IX. Acute valvular disease requiring inpatient as indicated by ANY ONE of the following (40)(41) [ ]a) Acute valvular regurgitation (42) [ ]b) Noninfectious valvulitis (43)(44) [ ]c) Obstructive valve thrombosis (45)(46) [ ]d) Paravalvular leak(47)(48) [ ]e) Other significant valvular disorder remaining after emergency or observation level of care (as appropriate) [ ]X. Pericardial disease requiring inpatient treatment as indicated by ANY ONE of the following (35)(36)(37)(38) [ ]a) Suspected tamponade [ ]b) Hemopericardium [ ]c) Other significant pericardial disorder remaining after emergency or observation level of care (as appropriate)(39) [ ] XI. Cardiac ischemia beyond scope of emergency and observation care. [ ] XII. Cyanotic heart disease requiring inpatient care as indicated by 1 or more of the following(58)(59)(60): [ ]a) Acute onset of hypoxemia [ ]b) Exacerbation [ ] XIII. Hypertension requiring inpatient treatment as indicated by ANYONE of the following(11)(12)(13)(14): [ ]a) Severe hypertension (SBP greater than 180 mm Hg or DBP greater than 110 mm Hg, or greater than the 95th percentile for age, gender, and height in pediatric patients) that cannot be controlled (eg, to SBP less than 160 mm Hg and DBP less than 100 mm Hg) by emergency department or observation care treatment(15) [ ]b) Acute end organ damage secondary to hypertension (SBP greater than 140 mm Hg or DBP greater than 90 mm Hg) as indicated by ANYONE of the following: [ ] i) Hypertensive encephalopathy (eg, Altered mental status)(16) [ ] ii) Cerebral infarction [ ] iii) Intracranial hemorrhage [ ] iv) Myocardial ischemia or infarction [ ] v) Heart failure (eg, pulmonary edema) [ ] vi) Aortic dissection [ ] vii) Increased creatinine (new) with reduction of more than 50% in estimated glomerular filtration rate from baseline [ ] viii) Papilledema [ ] ix) Retinal hemorrhage [ ] x) Microangiopathic hemolytic anemia [ ] xi) Seizure [ ] xii) Other significant finding secondary to hypertension [ ] XIV. Complications of transplanted heart indicated by ANY ONE of the following(61): [ ]a) Acute graft rejection requiring inpatient management (eg, intravenous imunosuppression)(62)(63) [ ]b) Acute graft heart failure indicated by ANY ONE of the following(64): [ ] i) Hemodynamic instability [ ] ii) Cardiac arrhythmias of immediate concern [ ] iii) Pulmonary edema that is very severe (eg, mechanical ventilation needed, imminent or likely, need for 100% oxygen to keep oxygen saturation above 90%) [ ] iv) Pulmonary edema that is persistent as indicated by ALL of the following: [ ] 1) New need for oxygen therapy to keep oxygen saturation above 90 % (or increased FiO2 need from baseline) [ ] 2) Has not improved sufficiently with emergency department or observation care IV diuretics or other heart failure treatments[E]. [ ] iv) Altered mental status that is severe or persistent [ ] iv) Increased creatinine (new on laboratory test) with reduction of more than 50% in estimated glomerular filtration rate from baseline [ ] iv) Progressively (ongoing) rising creatinine (known from past laboratory test) with reduction of more than 25% in estimated glomerular filtration rate from baseline [ ] iv) Acute renal failure [ ] iv) Acute peripheral ischemia (eg, examination shows pulseless, cool, mottled, or cyanotic extremity) [ ] iv) Pulmonary artery catheter monitoring needed [ ] iv) Other sign or symptom of heart failure requiring inpatient treatment (ie, too severe or not responsive to outpatient and observation care treatment) [ ]c) Infection requiring inpatient management (eg, Hemodynamic instability, need for intravenous antimicrobial treatment)(66)(67)(68)(69)(70) [ ]d) Cardiac allograft vasculopathy requiring inpatient management (eg evidence of cardiacischemia)(71) [ ]e) Other complication of transplanted heart (eg, stroke, severe pulmonary hypertension, severe valvular dysfunction) requiring inpatient management(72) The original [employer] content created by [employer] has been revised. The portions of the content which have been revised are identified through the use of italic text, and [facility] has neither reviewed nor approved the modified material. All other unmodified content is copyright [employer]. Please see references footnoted in the original [employer] edition 2014 JOCELYN VASQUEZ Jun 20, 2017 10:10
--- NOTE | 2017-06-20 10:43 | PDOC2 ---
TONY PINON IT DESKTOP SUPPORT TECHNICIAN 06/20/17 1043: CARDIAC CONSULT DATE OF CONSULT Date of Consult DATE: 06/20/17 TIME: 10:15 REASON FOR CONSULT Reason for Consult: CP r/o REFERRING PHYSICIAN Referring Physician: Chelly SOURCE Source: Chart review, Patient HISTORY OF PRESENT ILLNESS HISTORY OF PRESENT ILLNESS This is a pleasant 37 yo AA female admitted for complain of chest pressure. Reports that before she uses her stationary bike to exercise TIW. In the last 2 weeks she has been having midsternal pressure and SOA with exertion and relieved with rest. This has increased in frequency. Denies any nausea, diaphoresis. To add she has been having PND, significant snoring, but no significant swelling to her legs. Unfortunately she failed to quit smoking. She was off it for a year but she resumed it. Denies any recent long distance travel. No prior hx of CAD, VTE, falls or any recent injury or orthopedic procedure to LE. She has DM2, HTN and she has been compliant with her medications. PAST MEDICAL HISTORY Past Medical History Cardiovascular: HTN, Hyperlipidemia Pulmonary: Other (sleep apnea) GI: GERD Heme/Onc: Anemia NOS Infectious disease: No pertinent hx Renal/: UTI Endocrine: Diabetes 2 Dermatology: No pertinent hx MSK: Morbid obesity ENT: Allergic rhinitis Grav: 3 Para: 3 PAST SURGICAL HISTORY Past Surgical History: Cholecystectomy, Tubal Ligation FAMILY HISTORY Family History: Coronary Artery Disease (mother), Diabetes, Hypertension SOCIAL HISTORY Smoke: 1 pack per day (16 yrs) ALCOHOL: occassional Drugs: None Lives: with Family CURRENT MEDICATIONS CURRENT MEDICATIONS Current Medications Medications (Trade) Dose Ordered Sig/Sharmaine Route PRN Reason Start Time Stop Time Status Last Admin Dose Admin Aspirin (Children'S Aspirin) 324 mg 1X ONCE PO 06/19/17 13:45 06/19/17 13:46 DC 06/19/17 13:54 Nitroglycerin (Nitrostat) 0.4 mg PRN Q5MIN PRN SL CHEST PAIN 06/19/17 13:45 06/19/17 14:36 Influenza Virus Vaccine Quadrival (Fluarix Quad 1097-1934 Syringe) 0.5 ml ONCE ONCE VAX IM 06/19/17 18:00 06/19/17 18:01 DC 06/19/17 20:20 Amlodipine Besylate (Norvasc) 10 mg DAILY PO 06/19/17 20:00 06/20/17 09:32 DC 06/19/17 20:17 Aspirin (Ecotrin) 81 mg DAILYWBKFT PO 06/20/17 08:00 06/20/17 08:00 Losartan Potassium (Cozaar) 100 mg DAILY PO 06/19/17 20:00 06/20/17 09:32 DC 06/19/17 20:16 Cetirizine HCl (ZyrTEC) 10 mg HS PO 06/19/17 21:00 06/19/17 20:17 Acetaminophen/ Codeine Phosphate (Tylenol #3) 2 tab PRN Q4HRS PRN PO PAIN 06/19/17 20:30 06/19/17 20:39 ALLERGIES ALLERGIES: Coded Allergies: diphenhydramine (Verified Allergy, Mild, 12/27/16) morphine (Verified Adverse Reaction, Intermediate, 06/20/17) hallucinations ROS Review of System 14 point ROS evluated with pertinent positives noted per HPI PHYSICAL EXAM General: Alert, Oriented X3, Cooperative, No acute distress HEENT: Atraumatic, Mucous membr. moist/pink Lungs: Clear to auscultation, Normal air movement Heart: Regular rate (SR), Normal S1, Normal S2, Other (1/6 systolic murmur to LLS border) Abdomen: Soft, No tenderness, Other (obese) Extremities: No cyanosis, Other (1+ bilateral LE pitting edema) Skin: No breakdown, No significant lesion Neuro: Normal speech, Sensation intact Psych/Mental Status: Mental status NL, Mood NL MUSCULOSKELETAL: Full range of motion without pain VITALS VITALS Vital Signs Date Time Temp Pulse Resp B/P (MAP) Pulse Ox O2 Delivery O2 Flow Rate FiO2 06/20/17 07:00 97.5 79 18 153/84 (107) 97 Room Air 97.5 LABS Lab: Laboratory Tests Test 06/19/17 13:30 06/19/17 21:00 06/20/17 03:00 White Blood Count 10.0 x10^3/uL (4.0-11.0) 8.4 x10^3/uL (4.0-11.0) Red Blood Count 4.56 x10^6/uL (3.50-5.40) 4.48 x10^6/uL (3.50-5.40) Hemoglobin 9.8 g/dL (12.0-15.5) 9.7 g/dL (12.0-15.5) Hematocrit 31.8 % (36.0-47.0) 30.4 % (36.0-47.0) Mean Corpuscular Volume 70 fL (79-100) 68 fL (79-100) Mean Corpuscular Hemoglobin 22 pg (25-35) 22 pg (25-35) Mean Corpuscular Hemoglobin Concent 31 g/dL (31-37) 32 g/dL (31-37) Red Cell Distribution Width 18.1 % (11.5-14.5) 18.1 % (11.5-14.5) Platelet Count 404 x10^3/uL (140-400) 399 x10^3/uL (140-400) Neutrophils (%) (Auto) 61 % (31-73) 49 % (31-73) Lymphocytes (%) (Auto) 29 % (24-48) 41 % (24-48) Monocytes (%) (Auto) 6 % (0-9) 6 % (0-9) Eosinophils (%) (Auto) 2 % (0-3) 4 % (0-3) Basophils (%) (Auto) 1 % (0-3) 1 % (0-3) Neutrophils # (Auto) 6.2 x10^3uL (1.8-7.7) 4.2 x10^3uL (1.8-7.7) Lymphocytes # (Auto) 2.9 x10^3/uL (1.0-4.8) 3.4 x10^3/uL (1.0-4.8) Monocytes # (Auto) 0.6 x10^3/uL (0.0-1.1) 0.5 x10^3/uL (0.0-1.1) Eosinophils # (Auto) 0.2 x10^3/uL (0.0-0.7) 0.3 x10^3/uL (0.0-0.7) Basophils # (Auto) 0.1 x10^3/uL (0.0-0.2) 0.1 x10^3/uL (0.0-0.2) Platelet Estimate Adequate (ADEQUATE) Hypochromasia Present Microcytosis Present Sodium Level 142 mmol/L (136-145) 141 mmol/L (136-145) Potassium Level 3.6 mmol/L (3.5-5.1) 3.6 mmol/L (3.5-5.1) Chloride Level 104 mmol/L (98-107) 105 mmol/L (98-107) Carbon Dioxide Level 29 mmol/L (21-32) 26 mmol/L (21-32) Anion Gap 9 (6-14) 10 (6-14) Blood Urea Nitrogen 12 mg/dL (7-20) 11 mg/dL (7-20) Creatinine 1.3 mg/dL (0.6-1.0) 1.1 mg/dL (0.6-1.0) Estimated GFR (Cockcroft-Gault) 55.2 66.9 Glucose Level 108 mg/dL (70-99) 112 mg/dL (70-99) Calcium Level 9.0 mg/dL (8.5-10.1) 8.7 mg/dL (8.5-10.1) Total Bilirubin 0.2 mg/dL (0.2-1.0) Direct Bilirubin < 0.1 mg/dL (0.0-0.2) Aspartate Amino Transf (AST/SGOT) 14 U/L (15-37) Alanine Aminotransferase (ALT/SGPT) 21 U/L (14-59) Alkaline Phosphatase 120 U/L (46-116) Troponin I Quantitative < 0.017 ng/mL (0.000-0.055) < 0.017 ng/mL (0.000-0.055) < 0.017 ng/mL (0.000-0.055) Total Protein 7.7 g/dL (6.4-8.2) Albumin 3.4 g/dL (3.4-5.0) Lipase 170 U/L (73-393) ECHOCARDIOGRAM ECHOCARDIOGRAM <Conclusion> The left ventricle is normal size. The left ventricular systolic function is normal and the ejection fraction is within normal range. The Ejection Fraction is 55-60%. There is borderline concentric left ventricular hypertrophy. There is no significant aortic valvular stenosis. Doppler and Color Flow revealed trace aortic regurgitation. Doppler and Color-flow revealed trace to mild mitral regurgitation. Doppler and Color Flow revealed trace tricuspid regurgitation. The PA pressure was estimated at 32 mmHg. DATE: 11/24/16 1358 ASSESSMENT/PLAN ASSESSMENT/PLAN 1. Chest pain: troponin series normal, EKG SR with LVH with no acute changes by comparison. Exertional CP,SOA 2. HTN; labile 3. DM2 4. Microcytic hypochromic anemia with hx of menorrhagia. Hgb 9.7 5. Morbid obesity 6. Tobaccoism 7. Highly suspect for MARIOLA; with typical features. 8. Hx of tubal ligation 9. Hypothyroidism: New. TSH 10 Recommendations 1. MPI today 2. lipid panel, check T3/T4, UA 3. Continue home BP regimen including ASA. Labetolol IV PRN 4. Discussed lifestyle modification including smoking cessation. 5. Pt had trouble with claustrophobia from past CT and intolerance to anxiety meds (severe agitation, hallucination) will check DDIMER and if neg then PE is ruled out. 6. Will need outpt MARIOLA workup. Problems: LIZBETH CRAIG MD 06/20/17 1808: CARDIAC CONSULT ALLERGIES ALLERGIES: Coded Allergies: diphenhydramine (Verified Allergy, Mild, 12/27/16) morphine (Verified Adverse Reaction, Intermediate, 06/20/17) hallucinations ASSESSMENT/PLAN ASSESSMENT/PLAN Pt. seen and examined. Agree with above IS PROJECT MANAGER Note. Features of atypical and typical chest pain. MPI negative. Echo 6 months ago wnl. No pulmonary HTN Supportive care for now. Outpt follow up and determine if pain still persistent, at which point further eval with cath would be considered. Thanks for consultation. Problems: TONY PINON APRN Jun 20, 2017 10:43 LIZBETH CRAIG MD Jun 20, 2017 18:08
[2017-06-20] MEDS ORDERED: LABETALOL 20 MG/4 ML DISP.SYRIN. IVP PRN (11:00)
[2017-06-20] MEDS ORDERED: REGADENOSON 0.4 MG/5 ML DISP.SYRIN. IV ONE ×2 (11:30→13:19)
[2017-06-20 11:42] LABS: CHOLESTEROL/HDL RATIO 3.9
[2017-06-20 12:02] LABS: % SAT IRON 4 % (15-34); IRON,SERUM 18 ug/dL (50-170)
[2017-06-20 12:39] LABS: FREE T4 1.14 ng/dL (0.76-1.46)
--- NOTE | 2017-06-20 15:13 | RAD ---
APPROVED REPORT Test Type: Pharmacological Stress Nurse/Tech: favian thompson Test Indications: CHEST PAIN Cardiac History: HTN, SEE EHR Medications: SEE EHR Medical History: DIABETES, SEE EHR Resting ECG: SR Resting Heart Rate: 88 bpm Resting Blood Pressure: 152/84mmHg Pretest Chest Pain: No chest pain Nurse/Tech Notes LUNG SOUNDS CLEAR, S1S2 WNL. Consent: The procedure was explained to the patient in lay terms. Informed consent was witnessed. Nacho eout was entered into [facility]. History and Stress Test performed by RT Nikky (R) (N) Pharm. Details Pharmacologic stress testing was performed using 0.4mg per 5ml of regadenoson given intravenously ove r 7-10 seconds. Stress Symptoms PT STATES, IT FELT WEIRD. NO PAIN STATED. POST EXERCISE Max HR: 149 bpm Max Blood Pressure: 181/57mmHg Chest Pain: No. Arrhythmia: No. ST Change: No. INTERPRETATION Stress EKG Conclusion: Baseline EKG showed sinus rhythm. No ischemic changes at peak stress. No arr hythmias. Imaging Protocol IMAGE PROTOCOL: Stress Tc-99m/rest Tc-99m 2 days Rest: Stress: Viability: Radiopharm.Tc99m Sestamibi [id number] Duration 10min. Img Date 06/20/2017 Inj-Img [id number]. Stress Admin Site: IV - Left AntecubitalAdministrator: RT Nikky (R)(N) STRESS DATA End Diast. Vol.130.0mlAv. Heart Rate84.0bpm End Syst. Vol.50.0mlCO Index BSA0.0L/min Myocardial Zmbh850.0gEject. Dheztkry03.0% Stress Rates Pk. Fill Rate2.87EDV/secLVtime Pk. Fill 88.37msec Pk. Empty Rate2.96ESV/secLVtime Pk. Erljt778.65msec 10/03 Pk. Fill2.04EDV/sec Stress Scores Regional WT1.00Summed WT7.00 Regional WM1.00Summed WM6.00 LV Perfusion Stress scintigraphic images did not show any significant perfusion defects Wall Motion Normal left ventricular systolic function with ejection fraction calculated at 62%. LV Perf. Quant 17 Seg. SSS3.00 Stress Defect Extent (% LAD)3.10Rest Defect Extent (% LAD)Rev. Defect Extent (% LAD)0.00 Stress Defect Extent (% LCX) 16.30Rest Defect Extent (% LCX)Rev. Defect Extent (% LCX)0.00 Stress Defect Extent (% RCA)0.00Rest Defect Extent (% RCA)Rev. Defect Extent (% RCA)0.00 Stress Defect Extent (% NISHA)7.20Rest Defect Extent (% NISHA)Rev. Defect Extent (% NISHA)0.00 Conclusion 1. Regadenoson cardioisotope stress test did not show any evidence of ischemia or infarct. 2. Normal left ventricular systolic function with ejection fraction calculated at 62%. 3. Low risk for cardiac events.
[2017-06-20 16:42] LABS: BILIRUBIN,URINE NEGATIVE (NEG); GLUCOSE,URINE NEGATIVE (NEG); NITRITE,URINE NEGATIVE (NEG); PROTEIN,URINE NEGATIVE (NEG-TRACE)
[2017-06-20 16:53] LABS: BACTERIA,URINE MOD /HPF (0-FEW); RBC,URINE 0 /HPF (0-2); SQUAMOUS EPITHELIAL CELL,UR MANY /LPF
[2017-06-20] MEDS: CETIRIZINE HCL 10 MG TABLET. PO SCH (20:47)
[2017-06-20] MEDS ORDERED: amLODIPine BESYLATE 10 MG TABLET PO SCH (21:00)
[2017-06-20] MEDS ORDERED: LOSARTAN POTASSIUM 50 MG TABLET. PO SCH (21:00)
[2017-06-21 03:00] VITALS: BP 110/64
[2017-06-21 07:00] VITALS: BP 145/82
[2017-06-21 09:09] VITALS: BP 135/82
[2017-06-21] MEDS: ASPIRIN ENTERIC COATED 81 MG TABLET.DR. PO SCH (09:09)
[2017-06-21] MEDS: amLODIPine BESYLATE 10 MG TABLET PO SCH (09:09)
[2017-06-21] MEDS ORDERED: VARE0.5T PO (09:28)
[2017-06-21] MEDS ORDERED: LEVO50TA PO (09:28)
--- NOTE | 2017-06-21 09:37 | PDOC ---
SUBJECTIVE Subjective feels better, stress test negative , also D-Dimer neg , no need for CT chest OBJECTIVE Vital Signs Vital Signs Date Time Temp Pulse Resp B/P (MAP) Pulse Ox O2 Delivery O2 Flow Rate FiO2 06/21/17 09:09 74 135/82 06/21/17 07:00 97.7 74 18 145/82 (103) 92 Room Air 97.7 06/21/17 03:00 98.5 79 16 110/64 (79) 97 98.5 06/20/17 23:00 98.1 85 19 135/61 (85) 97 Room Air 98.1 06/20/17 20:49 89 138/92 06/20/17 20:00 Room Air 06/20/17 19:52 138/92 (107) 06/20/17 19:00 97.9 89 19 171/97 (121) 96 Room Air 97.9 06/20/17 15:00 97.5 85 18 125/69 (87) 98 Room Air 97.5 06/20/17 11:48 74 117/78 06/20/17 11:00 97.5 76 18 136/80 (98) 98 Room Air 97.5 PHYSICAL EXAM Physical Exam lungs clear heart RRR abd soft , possible subumbilical hernia ext no edema ASSESSMENT/PLAN Assessment/Plan 1-hypothyroidism 2-exertional chest pain, likely due to anemia and hypothyroid 3-morbid obesity and sleep apnea 4-borderline diabetes mellitus 5-hypertension 6-smoker counseled to quit 7-anemia iron deficiency due to metromenorrhagia 8-abdominal wall hernia stress test neg, D Dimer neg no need for CT chest, abdominal wall hernia and metromenorrhagia will be addressed out pt. counseled to loose wt and quit smoking Problems: COMMENT Lab Laboratory Tests Test 06/20/17 11:22 06/20/17 16:02 D-Dimer (Lizbeth) 0.39 ug/mlFEU (0.00-0.50) Iron Level 18 ug/dL (50-170) Total Iron Binding Capacity 408 ug/dL (250-450) Iron Saturation 4 % (15-34) Free Thyroxine 1.14 ng/dL (0.76-1.46) Free Triiodothyronine (T3) pg/mL 1.97 pg/mL (2.18-3.98) Urine Collection Type Unknown Urine Color Yellow Urine Clarity Cloudy Urine pH 7.0 Urine Specific [place] 1.025 Urine Protein Negative mg/dL (NEG-TRACE) Urine Glucose (UA) Negative mg/dL (NEG) Urine Ketones (Stick) Negative mg/dL (NEG) Urine Blood Negative (NEG) Urine Nitrite Negative (NEG) Urine Bilirubin Negative (NEG) Urine Urobilinogen Dipstick 1.0 mg/dL (0.2 mg/dL) Urine Leukocyte Esterase Moderate (NEG) Urine RBC 0 /HPF (0-2) Urine WBC 5-10 /HPF (0-4) Urine Squamous Epithelial Cells Many /LPF Urine Bacteria Mod /HPF (0-FEW) Urine Mucus Mod /LPF RADHA HEALY MD Jun 21, 2017 09:37
--- NOTE | 2017-06-21 09:40 | PDOC3 ---
Discharge Summary* Date of Admission: Jun 19, 2017 Date of Discharge: Jun 21, 2017 Admitting Diagnosis Problems Medical Problems: (1) Chest pain Status: Acute Problems: Final Diagnosis 1-hypothyroidism 2-exertional chest pain, likely due to anemia and hypothyroid 3-morbid obesity and sleep apnea 4-borderline diabetes mellitus 5-hypertension 6-smoker counseled to quit 7-anemia iron deficiency due to metromenorrhagia 8-abdominal wall hernia stress test neg, D Dimer neg no need for CT chest, abdominal wall hernia and metromenorrhagia will be addressed out pt. counseled to loose wt and quit smoking Problems Medical Problems: (1) Chest pain Status: Acute CONSULTS Cardiology Procedures MPI stress test, serial enzymes, D Dimer , cxr Brief Hospital Course Ms. Rangel is a 37 old [sex] who presented with [ ] Disposition/Orders: D/C to Home CONDITION AT DISCHARGE: Improved Diet: Cardiac, Consistent Carbohydrate Scheduled Amlodipine Besylate (Amlodipine Besylate), 10 MG PO DAILY Aspirin (Aspirin Ec), 81 MG PO DAILYWBKFT Cetirizine Hcl (Cetirizine Hcl), 10 MG PO HS, (Reported) Losartan Potassium (Cozaar), 100 MG PO DAILY Metformin Hcl (Metformin Hcl), 1 TAB PO DAILY Triamterene/Hydrochlorothiazid (Triamterene-Hctz 37.5-25 Mg Tb), 1 TAB PO DAILY, (Reported) Discontinued Medications Info (No Known Medications Prior To Admisstion), 1 EACH , (Reported) FOLLOW UP APPOINTMENT: Dr. Healy 1 week f/u possible abd wall hernia and anemia metormenorrhgia , loose wt, quit smoking Dr. Christy 2 weeks Time Spent Total time spent with patient [] minutes for coordination of care, counseling, and education. RADHA HEALY MD Jun 21, 2017 09:40
[2017-06-23] MEDS ORDERED: metFORMIN 500 MG TABLET PO SCH (09:00)
== END 2017-06-21 11:02 | disposition home or self-care (01) | DRG 644 ==
LOC: ER 13:03 → 5 NORTH 14:36 → OBSVTOIN 06-20 11:50
PROVIDERS: ADMIT Internal Medicine; ATTEND Internal Medicine
DX: E03.9 Hypothyroidism, unspecified (principal); Z68.43 Body mass index [BMI] 50.0-59.9, adult; I10 Essential (primary) hypertension; D50.9 Iron deficiency anemia, unspecified; E11.9 Type 2 diabetes mellitus without complications; E78.5 Hyperlipidemia, unspecified; E66.01 Morbid (severe) obesity due to excess calories; K43.9 Ventral hernia without obstruction or gangrene; F17.210 Nicotine dependence, cigarettes, uncomplicated; G47.30 Sleep apnea, unspecified; K21.9 Gastro-esophageal reflux disease without esophagitis; N92.1 Excessive and frequent menstruation with irregular cycle; Z82.49 Family history of ischemic heart disease and other diseases of the circulatory system; Z83.3 Family history of diabetes mellitus; Z98.51 Tubal ligation status; Z90.49 Acquired absence of other specified parts of digestive tract; Z88.8 Allergy status to other drugs, medicaments and biological substances; Z71.6 Tobacco abuse counseling
CPT/HCPCS: 36415; 71010; 78452; 80048; 80061; 80076; 81001; 82728; 83540; 83550; 83690; 84439; 84443; 84481; 84484; 85025; 85379; 90686; 93005; 93017; 96374; 96375; A9500; G0378; G0379; J1650; J2785; 99285-25

== ENCOUNTER 2018-10-29 10:47 | Inpatient (IN) | payer SELFPAY ==
[2018-10-29] VITALS (7 sets, daily range): BP systolic 145–155; BP diastolic 79–108
[~2018-10-29] VITALS: Ht 157.5 cm; Wt 131.5 kg
[~2018-10-29 10:47] MED LIST changes: -AMLO10TA2 PO; +AMLO10TA8 PO; -AMLO1CAP10 PO; +AMLO1CAP11 PO; +CETI10TA16 PO; +LOSA-73 PO; -LOSA50TA2 PO; +METF500T16 PO; -METF500T4 PO; -METH250T PO; +METH250T3 PO; +TRIA1TAB3 PO; +VARE0.5T PO
[2018-10-29 12:26] LABS: BASO # 0.1 x10^3/uL (0.0-0.2); BASO % 1 % (0-3); EOS # 0.1 x10^3/uL (0.0-0.7); EOS % 2 % (0-3); HEMOGLOBIN 7.4 g/dL (12.0-15.5); LYMPH # 1.9 x10^3/uL (1.0-4.8); LYMPH % 26 % (24-48); MEAN CORPUSCULAR HEMOGLOBIN 17 pg (25-35); MEAN CORPUSCULAR HGB CONC 28 g/dL (31-37); MEAN CORPUSCULAR VOLUME 60 fL (79-100); MONO # 0.4 x10^3/uL (0.0-1.1); MONO % 6 % (0-9); NEUT # 4.6 x10^3uL (1.8-7.7); NEUT % 65 % (31-73); PLATELET COUNT 404 x10^3/uL (140-400); RED BLOOD COUNT 4.33 x10^6/uL (3.50-5.40); RED CELL DISTRIBUTION WIDTH 21.1 % (11.5-14.5); WHITE BLOOD COUNT 7.1 x10^3/uL (4.0-11.0)
[2018-10-29 12:37] LABS: PROTHROMBIN TIME PATIENT 12.9 SEC (11.7-14.0)
[2018-10-29 12:40] LABS: CALCIUM 8.7 mg/dL (8.5-10.1); CREATININE 0.9 mg/dL (0.6-1.0); GFR 83.9; POTASSIUM 3.7 mmol/L (3.5-5.1)
[2018-10-29 12:46] LABS: ALBUMIN 3.2 g/dL (3.4-5.0); ALBUMIN/GLOBULIN RATIO 0.7 (1.0-1.7); TOTAL BILIRUBIN 0.3 mg/dL (0.2-1.0); TOTAL PROTEIN 7.5 g/dL (6.4-8.2)
[2018-10-29 14:28] LABS: % EOS 3 % (0-5); % LYMPHS 22 % (24-48); % MONOS 9 % (0-10); % SEGS 66 % (35-66); ANISOCYTOSIS MOD; HYPOCHROMIA MARKED; MICROCYTOSIS MARKED; PLT ESTIMATE ADEQUATE (ADEQUATE); POIKILOCYTOSIS SLIGHT
[2018-10-29 14:29] LABS: OVALOCYTES FEW; POLYCHROMASIA SLIGHT; SCHISTOCYTES OCC; TEAR DROP CELLS OCC
[2018-10-29 14:39] LABS: CLARITY,URINE CLOUDY; COLOR,URINE RED; PROTEIN,URINE 100 mg/dL (NEG-TRACE)
[2018-10-29 14:41] LABS: BACTERIA,URINE MODERATE /HPF (0-FEW); HYALINE CASTS, URINE OCCASIONAL /HPF; RBC,URINE TNTC /HPF (0-2); SQUAMOUS EPITHELIAL CELL,UR FEW /LPF
[2018-10-29] MEDS ORDERED: cloNIDine HCL 0.1 MG TABLET PO ONE (15:00)
[2018-10-29] MEDS ORDERED: IV NORMAL SALINE 1000ML BAG 1,000 ML IV ONE (15:00)
[2018-10-29] MEDS ORDERED: IV NORMAL SALINE 1000ML BAG 1,000 ML IV SCH (15:06)
[2018-10-29] MEDS ORDERED: fentaNYL PF VIAL 100 MCG/2 ML VIAL IV PRN (15:15)
[2018-10-29] MEDS ORDERED: ONDANSETRON PF 4 MG/2 ML VIAL. IV PRN (15:15)
--- NOTE | 2018-10-29 15:48 | RAD ---
EXAM: Pelvic sonogram. HISTORY: Abnormal uterine bleeding. TECHNIQUE: Sonographic imaging of the pelvis was performed. COMPARISON: None. FINDINGS: The uterus measures 11.6 x 6.8 x 6.3 cm. The endometrial stripe measures 12 mm in thickness. There is a 2.2 cm uterine fibroid. The ovaries are normal in size. There are small bilateral ovarian follicular cysts, measuring 2.3 cm on the right and 1.2 cm of the left. There is normal blood flow within both ovaries. There is no pelvic free fluid. IMPRESSION: 1. 2.2 cm uterine fibroid. 2. Prominent endometrial stripe, within normal limits for a premenopausal female. 3. Small bilateral ovarian follicular cysts, the largest of which measures 2.3 cm on the right. Electronically signed by: Charley Fowler MD (10/29/2018 3:44 PM) [id number]
--- NOTE | 2018-10-29 17:37 | PDOC1 ---
History and Physical Date of Admission Date of Admission DATE: 10/29/18 TIME: 17:32 Identification/Chief Complaint Chief Complaint vaginal bleeding Source Source: Chart review, Patient History of Present Illness History of Present Illness 38 y/o presented to ED with c/o heavy vaginal bleeding for the past 2 weeks with passage of blood clots. She has h/o CHTN. Pt. with h/o Cholecystectomy, BTL and Hernia repair. Hgb 7 with vaginal bleeding and will need at least 1 unit PRBC's. She has been seen in past but did not f/u to clinic visit. Past Medical History Cardiovascular: HTN, Hyperlipidemia Pulmonary: Other GI: GERD Heme/Onc: Anemia NOS Infectious disease: No pertinent hx Renal/: UTI Endocrine: Diabetes Past Surgical History Past Surgical History: Cholecystectomy, Hernia Repair, Tubal Ligation Family History Family History: Coronary Artery Disease, Diabetes, Hypertension Social History ALCOHOL: occassional Drugs: None Current Problem List Problem List Problems Medical Problems: (1) Anemia Status: Acute (2) Vaginal bleeding Status: Acute Current Medications Current Medications Current Medications Sodium Chloride 1,000 ml @ 1,000 mls/hr 1X ONCE IV Last administered on at 15:01; Start 10/29/18 at 15:00; Stop 10/29/18 at 15:59; Status DC Clonidine HCl (Catapres) 0.1 mg 1X ONCE PO Last administered on 10/29/18at 15: 04; Start 10/29/18 at 15:00; Stop 10/29/18 at 15:01; Status DC Ondansetron HCl (Zofran) 4 mg PRN Q8HRS PRN IV NAUSEA/VOMITING; Start 10/29/18 at 15:15; Stop 10/30/18 at 15:14 Fentanyl Citrate (Fentanyl 2ml Vial) 50 mcg PRN Q1HR PRN IV PAIN; Start at 15:15; Stop 10/30/18 at 15:14 Sodium Chloride 1,000 ml @ 125 mls/hr Q8H IV ; Start 10/29/18 at 15:06; Stop at 15:05 Medroxyprogesterone Acetate (Provera) 10 mg BID PO ; Start 10/29/18 at 21:00; Status UNV Active Scripts Active Chantix (Varenicline Tartrate) 0.5 Mg Tablet 0.5 Mg PO BID 30 Days 0.5 MG PO DAILY X3 DAY, 0.5 MG PO BID X4 DAY, 1 MG PO BID UNTIL END OF TREATMENT Synthroid (Levothyroxine Sodium) 50 Mcg Tablet 1 Tab PO DAILY Metformin Hcl 500 Mg Tablet 1 Tab PO DAILY 30 Days Cozaar (Losartan Potassium) 50 Mg Tablet 100 Mg PO DAILY 30 Days Aspirin Ec (Aspirin) 81 Mg Tablet.dr 81 Mg PO DAILYWBKFT 30 Days Amlodipine Besylate 10 Mg Tablet 10 Mg PO DAILY 30 Days Reported Triamterene-Hctz 37.5-25 Mg Tb (Triamterene/Hydrochlorothiazid) 1 Each Tablet 1 Tab PO DAILY Cetirizine Hcl 10 Mg Tablet 10 Mg PO HS Allergies Allergies: Coded Allergies: diphenhydramine (Verified Allergy, Mild, 12/27/16) morphine (Verified Adverse Reaction, Intermediate, 06/20/17) hallucinations ROS General: YES: Fatigue, Malaise, Appetite; No: Chills, Night Sweats, Other PSYCHOLOGICAL ROS: No: Anxiety, Behavioral Disorder, Concentration difficultie , Decreased libido, Depression, Disorientation, Hallucinations, Hostility, Irritablity, Memory difficulties, Mood Swings, Obsessive thoughts, Physical abuse, Sexual abuse, Sleep disturbances, Suicidal ideation, Other Eyes: No Blurry vision, No Decreased vision, No Double vision, No Dry eyes, No Excessive tearing, No Eye Pain, No Itchy Eyes, No Loss of vision, No Photophobia , No Scotomata, No Uses contacts, No Uses glasses, No Other HEENT: YES: Heacaches; No: Visual Changes, Hearing change, Nasal congestion, Nasal discharge, Oral lesions, Sinus pain, Sore Throat, Epistaxis, Sneezing, Snoring, Tinnitus, Vertigo, Vocal changes, Other ALLERGY AND IMMUNOLOGY: No: Hives, Insect Bite Sensitivity, Itchy/Watery Eyes, Nasal Congestion, Post Nasal Drip, Seasonal Allergies, Other Hematological and Lymphatic: No: Bleeding Problems, Blood Clots, Blood Transfusions, Brusing, Night Sweats, Pallor, Swollen Lymph Nodes, Other ENDOCRINE: No: Breast Changes, Galactorrhea, Hair Pattern Changes, Hot Flashes , Malaise/lethargy, Mood Swings, Palpitations, Polydipsia/polyuria, Skin Changes , Temperature Intolerance, Unexpected Weight Changes, Other Breast: No New/Changing Breast Lumps, No Nipple changes, No Nipple discharge, No Other Respiratory: No: Cough, Hemoptysis, Orthopnea, Pleuritic Pain, Shortness of breath, SOB with excertion, Sputum Changes, Stridor, Tachypnea, Wheezing, Other Cardiovascular: No Chest Pain, No Palpitations, No Orthopnea, No Paroxysmal Noc. Dyspnea, No Edema, No Lt Headedness, No Other Gastrointestinal: No Nausea, No Vomiting, No Abdominal Pain, No Diarrhea, No Constipation, No Melena, No Hematochezia, No Other Skin: No Dry Skin, No Eczema, No Hair Changes, No Lumps, No Mole Changes, No Mottling, No Nail Changes, No Pruritus, No Rash, No Skin Lesion Changes, No Other, No Acne Physical Exam General: Alert, Oriented X3, Cooperative HEENT: Atraumatic Lungs: Clear to auscultation Heart: S1S2 Breasts: Normal Abdomen: Normal bowel sounds, Soft, No tenderness, No masses Psych/Mental Status: Mental status NL Vitals Vitals Vital Signs Date Time Temp Pulse Resp B/P (MAP) Pulse Ox O2 Delivery O2 Flow Rate FiO2 10/29/18 16:39 98.3 76 20 154/97 (116) 97 Room Air 98.3 Labs Labs Laboratory Tests Test 10/29/18 11:50 10/29/18 13:30 White Blood Count 7.1 x10^3/uL (4.0-11.0) Red Blood Count 4.33 x10^6/uL (3.50-5.40) Hemoglobin 7.4 g/dL (12.0-15.5) Hematocrit 26.0 % (36.0-47.0) Mean Corpuscular Volume 60 fL (79-100) Mean Corpuscular Hemoglobin 17 pg (25-35) Mean Corpuscular Hemoglobin Concent 28 g/dL (31-37) Red Cell Distribution Width 21.1 % (11.5-14.5) Platelet Count 404 x10^3/uL (140-400) Neutrophils (%) (Auto) 65 % (31-73) Lymphocytes (%) (Auto) 26 % (24-48) Monocytes (%) (Auto) 6 % (0-9) Eosinophils (%) (Auto) 2 % (0-3) Basophils (%) (Auto) 1 % (0-3) Neutrophils # (Auto) 4.6 x10^3uL (1.8-7.7) Lymphocytes # (Auto) 1.9 x10^3/uL (1.0-4.8) Monocytes # (Auto) 0.4 x10^3/uL (0.0-1.1) Eosinophils # (Auto) 0.1 x10^3/uL (0.0-0.7) Basophils # (Auto) 0.1 x10^3/uL (0.0-0.2) Segmented Neutrophils % 66 % (35-66) Lymphocytes % 22 % (24-48) Monocytes % 9 % (0-10) Eosinophils % 3 % (0-5) Platelet Estimate Adequate (ADEQUATE) Polychromasia Slight Hypochromasia Marked Poikilocytosis Slight Anisocytosis Mod Microcytosis Marked Tear Drop Cells Occ Ovalocytes Few Schistocytes Occ Prothrombin Time 12.9 SEC (11.7-14.0) Prothromb Time International Ratio 1.0 (0.8-1.1) Activated Partial Thromboplast Time 25 SEC (24-38) Sodium Level 139 mmol/L (136-145) Potassium Level 3.7 mmol/L (3.5-5.1) Chloride Level 103 mmol/L (98-107) Carbon Dioxide Level 26 mmol/L (21-32) Anion Gap 10 (6-14) Blood Urea Nitrogen 9 mg/dL (7-20) Creatinine 0.9 mg/dL (0.6-1.0) Estimated GFR (Cockcroft-Gault) 83.9 BUN/Creatinine Ratio 10 (6-20) Glucose Level 96 mg/dL (70-99) Calcium Level 8.7 mg/dL (8.5-10.1) Total Bilirubin 0.3 mg/dL (0.2-1.0) Aspartate Amino Transf (AST/SGOT) 16 U/L (15-37) Alanine Aminotransferase (ALT/SGPT) 18 U/L (14-59) Alkaline Phosphatase 113 U/L (46-116) Total Protein 7.5 g/dL (6.4-8.2) Albumin 3.2 g/dL (3.4-5.0) Albumin/Globulin Ratio 0.7 (1.0-1.7) Urine Collection Type Unknown Urine Color Red Urine Clarity Cloudy Urine pH 6.0 Urine Specific [place] 1.025 Urine Protein 100 mg/dL (NEG-TRACE) Urine Glucose (UA) Negative mg/dL (NEG) Urine Ketones (Stick) mg/dL (NEG) Urine Blood Large (NEG) Urine Nitrite (NEG) Urine Bilirubin (NEG) Urine Urobilinogen Dipstick 1.0 mg/dL (0.2 mg/dL) Urine Leukocyte Esterase Moderate (NEG) Urine RBC Tntc /HPF (0-2) Urine WBC 1-4 /HPF (0-4) Urine Squamous Epithelial Cells Few /LPF Urine Bacteria Moderate /HPF (0-FEW) Urine Hyaline Casts Occasional /HPF Urine Mucus Slight /LPF Laboratory Tests Test 10/29/18 11:50 10/29/18 13:30 White Blood Count 7.1 x10^3/uL (4.0-11.0) Red Blood Count 4.33 x10^6/uL (3.50-5.40) Hemoglobin 7.4 g/dL (12.0-15.5) Hematocrit 26.0 % (36.0-47.0) Mean Corpuscular Volume 60 fL (79-100) Mean Corpuscular Hemoglobin 17 pg (25-35) Mean Corpuscular Hemoglobin Concent 28 g/dL (31-37) Red Cell Distribution Width 21.1 % (11.5-14.5) Platelet Count 404 x10^3/uL (140-400) Neutrophils (%) (Auto) 65 % (31-73) Lymphocytes (%) (Auto) 26 % (24-48) Monocytes (%) (Auto) 6 % (0-9) Eosinophils (%) (Auto) 2 % (0-3) Basophils (%) (Auto) 1 % (0-3) Neutrophils # (Auto) 4.6 x10^3uL (1.8-7.7) Lymphocytes # (Auto) 1.9 x10^3/uL (1.0-4.8) Monocytes # (Auto) 0.4 x10^3/uL (0.0-1.1) Eosinophils # (Auto) 0.1 x10^3/uL (0.0-0.7) Basophils # (Auto) 0.1 x10^3/uL (0.0-0.2) Segmented Neutrophils % 66 % (35-66) Lymphocytes % 22 % (24-48) Monocytes % 9 % (0-10) Eosinophils % 3 % (0-5) Platelet Estimate Adequate (ADEQUATE) Polychromasia Slight Hypochromasia Marked Poikilocytosis Slight Anisocytosis Mod Microcytosis Marked Tear Drop Cells Occ Ovalocytes Few Schistocytes Occ Prothrombin Time 12.9 SEC (11.7-14.0) Prothromb Time International Ratio 1.0 (0.8-1.1) Activated Partial Thromboplast Time 25 SEC (24-38) Sodium Level 139 mmol/L (136-145) Potassium Level 3.7 mmol/L (3.5-5.1) Chloride Level 103 mmol/L (98-107) Carbon Dioxide Level 26 mmol/L (21-32) Anion Gap 10 (6-14) Blood Urea Nitrogen 9 mg/dL (7-20) Creatinine 0.9 mg/dL (0.6-1.0) Estimated GFR (Cockcroft-Gault) 83.9 BUN/Creatinine Ratio 10 (6-20) Glucose Level 96 mg/dL (70-99) Calcium Level 8.7 mg/dL (8.5-10.1) Total Bilirubin 0.3 mg/dL (0.2-1.0) Aspartate Amino Transf (AST/SGOT) 16 U/L (15-37) Alanine Aminotransferase (ALT/SGPT) 18 U/L (14-59) Alkaline Phosphatase 113 U/L (46-116) Total Protein 7.5 g/dL (6.4-8.2) Albumin 3.2 g/dL (3.4-5.0) Albumin/Globulin Ratio 0.7 (1.0-1.7) Urine Collection Type Unknown Urine Color Red Urine Clarity Cloudy Urine pH 6.0 Urine Specific [place] 1.025 Urine Protein 100 mg/dL (NEG-TRACE) Urine Glucose (UA) Negative mg/dL (NEG) Urine Ketones (Stick) mg/dL (NEG) Urine Blood Large (NEG) Urine Nitrite (NEG) Urine Bilirubin (NEG) Urine Urobilinogen Dipstick 1.0 mg/dL (0.2 mg/dL) Urine Leukocyte Esterase Moderate (NEG) Urine RBC Tntc /HPF (0-2) Urine WBC 1-4 /HPF (0-4) Urine Squamous Epithelial Cells Few /LPF Urine Bacteria Moderate /HPF (0-FEW) Urine Hyaline Casts Occasional /HPF Urine Mucus Slight /LPF VTE Prophylaxis Ordered VTE Prophylaxis Devices: No VTE Pharmacological Prophylaxi: Yes Assessment/Plan Assessment/Plan A: AUB Chronic blood loss anemia P: Admit. Transfuse 1 unit PRBC's. Start Provera BID. Check hemogram in am after transfusion complete. SHERRY EDMONDSON Jr, MD Oct 29, 2018 17:37
--- NOTE | 2018-10-29 18:01 | PHYS DOC ---
Past Medical History Past Medical History: Hypertension Additional Past Medical Histor: "fluid around my heart" Past Surgical History: Cholecystectomy, Tubal ligation, Other Additional Past Surgical Histo: hernia repair Additional Information: 1/2 PACK/DAY Alcohol Use: Rarely Drug Use: None Adult General Chief Complaint Chief Complaint: [facility]ED[facility] HPI Patient is a 38 year old female who presents with bleeding �2 weeks. The patient states that the bleeding has become much heavier over the past 2 days and she is soaking for approximately 4 Kotex hourly. She is becoming dizzy when she stands up. She sees Dr. Burdick for gynecology but has not contacted him about this issue. She states that she has a long history of irregular periods. She had her son approximately 3 years ago. She was taking control pills to regulate her period prior to that , but has not taken them since his . She denies pelvic pain, fevers, nausea or vomiting. Review of Systems Review of Systems Constitutional: Denies fever or chills [] Respiratory: Denies cough or shortness of breath [] Cardiovascular: No additional information not addressed in HPI [] GI: Denies abdominal pain, nausea, vomiting, bloody stools or diarrhea [] : See history of present illness Musculoskeletal: Denies back pain or joint pain [] Integument: Denies rash or skin lesions [] Neurologic: Denies headache, focal weakness or sensory changes [] Endocrine: Denies polyuria or polydipsia [] All other systems were reviewed and found to be within normal limits, except as documented in this note. Allergies Allergies Allergies Coded Allergies Type Severity Reaction Last Updated Verified diphenhydramine Allergy Mild 12/27/16 Yes morphine Adverse Reaction Intermediate 06/20/17 Yes Physical Exam Physical Exam Constitutional: Well developed, well nourished, no acute distress, non-toxic appearance. [] Cardiovascular:Heart rate regular rhythm, no murmur [] Lungs & Thorax: Bilateral breath sounds clear to auscultation [] Abdomen: Bowel sounds normal, soft, no tenderness, no masses, no pulsatile masses. [] Skin: Warm, dry, no erythema, no rash. [] Back: No tenderness, no CVA tenderness. [] Extremities: No tenderness, no cyanosis, no clubbing, ROM intact, no edema. [] Neurologic: Alert and oriented X 3, normal motor function, normal sensory function, no focal deficits noted. [] Psychologic: Affect normal, judgement normal, mood normal. [] Current Patient Data Vital Signs Vital Signs Date Time Temp Pulse Resp B/P (MAP) Pulse Ox O2 Delivery O2 Flow Rate FiO2 10/29/18 14:30 78 20 172/103 (126) 99 Room Air 10/29/18 11:40 98.1 98.1 Lab Values Laboratory Tests Test 10/29/18 11:50 10/29/18 13:30 White Blood Count 7.1 x10^3/uL (4.0-11.0) Red Blood Count 4.33 x10^6/uL (3.50-5.40) Hemoglobin 7.4 g/dL (12.0-15.5) L Hematocrit 26.0 % (36.0-47.0) L Mean Corpuscular Volume 60 fL (79-100) L Mean Corpuscular Hemoglobin 17 pg (25-35) L Mean Corpuscular Hemoglobin Concent 28 g/dL (31-37) L Red Cell Distribution Width 21.1 % (11.5-14.5) H Platelet Count 404 x10^3/uL (140-400) H Neutrophils (%) (Auto) 65 % (31-73) Lymphocytes (%) (Auto) 26 % (24-48) Monocytes (%) (Auto) 6 % (0-9) Eosinophils (%) (Auto) 2 % (0-3) Basophils (%) (Auto) 1 % (0-3) Neutrophils # (Auto) 4.6 x10^3uL (1.8-7.7) Lymphocytes # (Auto) 1.9 x10^3/uL (1.0-4.8) Monocytes # (Auto) 0.4 x10^3/uL (0.0-1.1) Eosinophils # (Auto) 0.1 x10^3/uL (0.0-0.7) Basophils # (Auto) 0.1 x10^3/uL (0.0-0.2) Segmented Neutrophils % 66 % (35-66) Lymphocytes % 22 % (24-48) L Monocytes % 9 % (0-10) Eosinophils % 3 % (0-5) Platelet Estimate Adequate (ADEQUATE) Polychromasia Slight Hypochromasia Marked Poikilocytosis Slight Anisocytosis Mod Microcytosis Marked Tear Drop Cells Occ Ovalocytes Few Schistocytes Occ Prothrombin Time 12.9 SEC (11.7-14.0) Prothrombin Time INR 1.0 (0.8-1.1) PTT 25 SEC (24-38) Sodium Level 139 mmol/L (136-145) Potassium Level 3.7 mmol/L (3.5-5.1) Chloride Level 103 mmol/L (98-107) Carbon Dioxide Level 26 mmol/L (21-32) Anion Gap 10 (6-14) Blood Urea Nitrogen 9 mg/dL (7-20) Creatinine 0.9 mg/dL (0.6-1.0) Estimated GFR (Cockcroft-Gault) 83.9 BUN/Creatinine Ratio 10 (6-20) Glucose Level 96 mg/dL (70-99) Calcium Level 8.7 mg/dL (8.5-10.1) Total Bilirubin 0.3 mg/dL (0.2-1.0) Aspartate Amino Transferase (AST) 16 U/L (15-37) Alanine Aminotransferase (ALT) 18 U/L (14-59) Alkaline Phosphatase 113 U/L (46-116) Total Protein 7.5 g/dL (6.4-8.2) Albumin 3.2 g/dL (3.4-5.0) L Albumin/Globulin Ratio 0.7 (1.0-1.7) L Urine Collection Type Unknown Urine Color Red Urine Clarity Cloudy Urine pH 6.0 Urine Specific [place] 1.025 Urine Protein 100 mg/dL (NEG-TRACE) Urine Glucose (UA) Negative mg/dL (NEG) Urine Ketones (Stick) mg/dL (NEG) Urine Blood Large (NEG) Urine Nitrite (NEG) Urine Bilirubin (NEG) Urine Urobilinogen Dipstick 1.0 mg/dL (0.2 mg/dL) Urine Leukocyte Esterase Moderate (NEG) Urine RBC Tntc /HPF (0-2) Urine WBC 1-4 /HPF (0-4) Urine Squamous Epithelial Cells Few /LPF Urine Bacteria Moderate /HPF (0-FEW) Urine Hyaline Casts Occasional /HPF Urine Mucus Slight /LPF Laboratory Tests 10/29/18 11:50 Laboratory Tests 10/29/18 11:50 EKG EKG [] Radiology/Procedures Radiology/Procedures []PATIENT: KRISSY CASEY AACCOUNT: [id number]#: [id number] : 1980 LOCATION: [address] [place] [address] AGE: 38 SEX: F EXAM STATUS: ADM IN ORD. PHYSICIAN: GUERO LEA APRN REASON: abnormal bleeding PROCEDURE: PELVIS COMPLETE EXAM: Pelvic sonogram. HISTORY: Abnormal uterine bleeding. TECHNIQUE: Sonographic imaging of the pelvis was performed. COMPARISON: None. FINDINGS: The uterus measures 11.6 x 6.8 x 6.3 cm. The endometrial stripe measures 12 mm in thickness. There is a 2.2 cm uterine fibroid. The ovaries are normal in size. There are small bilateral ovarian follicular cysts, measuring 2.3 cm on the right and 1.2 cm of the left. There is normal blood flow within both ovaries. There is no pelvic free fluid. IMPRESSION: 1. 2.2 cm uterine fibroid. 2. Prominent endometrial stripe, within normal limits for a premenopausal female. 3. Small bilateral ovarian follicular cysts, the largest of which measures 2.3 cm on the right. Electronically signed by: Charley Lopes MD (10/29/2018 3:44 PM) [facility] DICTATED and SIGNED BY: CHARLEY LOPES MD DATE: 10/29/18 1543 Course & Med Decision Making Course & Med Decision Making Pertinent Labs and Imaging studies reviewed. (See chart for details) []Dr. Lorenzana has accepted this patient to his service. She has been typed and screened and blood products have been ordered. She has been given a liter of normal saline in the emergency department. Dragon Disclaimer Dragon Disclaimer This electronic medical record was generated, in whole or in part, using a voice recognition dictation system. Departure Departure Impression: Primary Impression: Anemia Additional Impression: Vaginal bleeding Disposition: ADMITTED INPATIENT Admitting Physician: Other Condition: STABLE Referrals: RADHA HEALY MD (PCP) Problem Qualifiers GUERO LEA APRN Oct 29, 2018 18:01
[2018-10-29] MEDS ORDERED: amLODIPine BESYLATE 5 MG TABLET PO ONE (21:00)
[2018-10-29] MEDS: LOSARTAN POTASSIUM 50 MG TABLET. PO SCH (21:14)
[2018-10-30 05:58] VITALS: BP 139/90
[2018-10-30 06:21] LABS: HEMATOCRIT 26.1 % (36.0-47.0); HEMOGLOBIN 7.7 g/dL (12.0-15.5); RED BLOOD COUNT 4.21 x10^6/uL (3.50-5.40); RED CELL DISTRIBUTION WIDTH 25.8 % (11.5-14.5); WHITE BLOOD COUNT 8.4 x10^3/uL (4.0-11.0)
[2018-10-30] MEDS ORDERED: LOSARTAN POTASSIUM 50 MG TABLET. PO SCH (08:00)
[2018-10-30 08:20] VITALS: BP 140/87
--- NOTE | 2018-10-30 08:21 | PDOC ---
SURGICAL PROGRESS NOTE Subjective Pt. feeling better after transfusion. SHe reports less bleeding overnight that filled 50% maxipad, which is greatly improved since admission. She is tolerating Provera BID. Vital Signs Vital Signs Date Time Temp Pulse Resp B/P (MAP) Pulse Ox O2 Delivery O2 Flow Rate FiO2 10/30/18 05:58 98.0 84 18 139/90 (106) 96 Room Air 98.0 I&O Intake and Output 10/30/18 07:01 Intake Total 1964 ml Balance 1964 ml Intake Oral 1530 ml Blood Product IV Normal Saline Flush 434 ml # Voids 6 PATIENT HAS A BACON: No General: Alert, Oriented X3, Cooperative HEENT: Atraumatic Lungs: Clear to auscultation Heart: Regular rate Abdomen: Normal bowel sounds, Soft, No tenderness Psych/Mental Status: Mental status NL Labs Laboratory Tests Test 10/29/18 11:50 10/29/18 13:30 10/30/18 05:36 White Blood Count 7.1 x10^3/uL (4.0-11.0) 8.4 x10^3/uL (4.0-11.0) Red Blood Count 4.33 x10^6/uL (3.50-5.40) 4.21 x10^6/uL (3.50-5.40) Hemoglobin 7.4 g/dL (12.0-15.5) 7.7 g/dL (12.0-15.5) Hematocrit 26.0 % (36.0-47.0) 26.1 % (36.0-47.0) Mean Corpuscular Volume 60 fL (79-100) 62 fL (79-100) Mean Corpuscular Hemoglobin 17 pg (25-35) 18 pg (25-35) Mean Corpuscular Hemoglobin Concent 28 g/dL (31-37) 29 g/dL (31-37) Red Cell Distribution Width 21.1 % (11.5-14.5) 25.8 % (11.5-14.5) Platelet Count 404 x10^3/uL (140-400) 379 x10^3/uL (140-400) Neutrophils (%) (Auto) 65 % (31-73) Lymphocytes (%) (Auto) 26 % (24-48) Monocytes (%) (Auto) 6 % (0-9) Eosinophils (%) (Auto) 2 % (0-3) Basophils (%) (Auto) 1 % (0-3) Neutrophils # (Auto) 4.6 x10^3uL (1.8-7.7) Lymphocytes # (Auto) 1.9 x10^3/uL (1.0-4.8) Monocytes # (Auto) 0.4 x10^3/uL (0.0-1.1) Eosinophils # (Auto) 0.1 x10^3/uL (0.0-0.7) Basophils # (Auto) 0.1 x10^3/uL (0.0-0.2) Segmented Neutrophils % 66 % (35-66) Lymphocytes % 22 % (24-48) Monocytes % 9 % (0-10) Eosinophils % 3 % (0-5) Platelet Estimate Adequate (ADEQUATE) Polychromasia Slight Hypochromasia Marked Poikilocytosis Slight Anisocytosis Mod Microcytosis Marked Tear Drop Cells Occ Ovalocytes Few Schistocytes Occ Prothrombin Time 12.9 SEC (11.7-14.0) Prothromb Time International Ratio 1.0 (0.8-1.1) Activated Partial Thromboplast Time 25 SEC (24-38) Sodium Level 139 mmol/L (136-145) Potassium Level 3.7 mmol/L (3.5-5.1) Chloride Level 103 mmol/L (98-107) Carbon Dioxide Level 26 mmol/L (21-32) Anion Gap 10 (6-14) Blood Urea Nitrogen 9 mg/dL (7-20) Creatinine 0.9 mg/dL (0.6-1.0) Estimated GFR (Cockcroft-Gault) 83.9 BUN/Creatinine Ratio 10 (6-20) Glucose Level 96 mg/dL (70-99) Calcium Level 8.7 mg/dL (8.5-10.1) Total Bilirubin 0.3 mg/dL (0.2-1.0) Aspartate Amino Transf (AST/SGOT) 16 U/L (15-37) Alanine Aminotransferase (ALT/SGPT) 18 U/L (14-59) Alkaline Phosphatase 113 U/L (46-116) Total Protein 7.5 g/dL (6.4-8.2) Albumin 3.2 g/dL (3.4-5.0) Albumin/Globulin Ratio 0.7 (1.0-1.7) Urine Collection Type Unknown Urine Color Red Urine Clarity Cloudy Urine pH 6.0 Urine Specific [place] 1.025 Urine Protein 100 mg/dL (NEG-TRACE) Urine Glucose (UA) Negative mg/dL (NEG) Urine Ketones (Stick) mg/dL (NEG) Urine Blood Large (NEG) Urine Nitrite (NEG) Urine Bilirubin (NEG) Urine Urobilinogen Dipstick 1.0 mg/dL (0.2 mg/dL) Urine Leukocyte Esterase Moderate (NEG) Urine RBC Tntc /HPF (0-2) Urine WBC 1-4 /HPF (0-4) Urine Squamous Epithelial Cells Few /LPF Urine Bacteria Moderate /HPF (0-FEW) Urine Hyaline Casts Occasional /HPF Urine Mucus Slight /LPF Laboratory Tests Test 10/29/18 11:50 10/29/18 13:30 10/30/18 05:36 White Blood Count 7.1 x10^3/uL (4.0-11.0) 8.4 x10^3/uL (4.0-11.0) Red Blood Count 4.33 x10^6/uL (3.50-5.40) 4.21 x10^6/uL (3.50-5.40) Hemoglobin 7.4 g/dL (12.0-15.5) 7.7 g/dL (12.0-15.5) Hematocrit 26.0 % (36.0-47.0) 26.1 % (36.0-47.0) Mean Corpuscular Volume 60 fL (79-100) 62 fL (79-100) Mean Corpuscular Hemoglobin 17 pg (25-35) 18 pg (25-35) Mean Corpuscular Hemoglobin Concent 28 g/dL (31-37) 29 g/dL (31-37) Red Cell Distribution Width 21.1 % (11.5-14.5) 25.8 % (11.5-14.5) Platelet Count 404 x10^3/uL (140-400) 379 x10^3/uL (140-400) Neutrophils (%) (Auto) 65 % (31-73) Lymphocytes (%) (Auto) 26 % (24-48) Monocytes (%) (Auto) 6 % (0-9) Eosinophils (%) (Auto) 2 % (0-3) Basophils (%) (Auto) 1 % (0-3) Neutrophils # (Auto) 4.6 x10^3uL (1.8-7.7) Lymphocytes # (Auto) 1.9 x10^3/uL (1.0-4.8) Monocytes # (Auto) 0.4 x10^3/uL (0.0-1.1) Eosinophils # (Auto) 0.1 x10^3/uL (0.0-0.7) Basophils # (Auto) 0.1 x10^3/uL (0.0-0.2) Segmented Neutrophils % 66 % (35-66) Lymphocytes % 22 % (24-48) Monocytes % 9 % (0-10) Eosinophils % 3 % (0-5) Platelet Estimate Adequate (ADEQUATE) Polychromasia Slight Hypochromasia Marked Poikilocytosis Slight Anisocytosis Mod Microcytosis Marked Tear Drop Cells Occ Ovalocytes Few Schistocytes Occ Prothrombin Time 12.9 SEC (11.7-14.0) Prothromb Time International Ratio 1.0 (0.8-1.1) Activated Partial Thromboplast Time 25 SEC (24-38) Sodium Level 139 mmol/L (136-145) Potassium Level 3.7 mmol/L (3.5-5.1) Chloride Level 103 mmol/L (98-107) Carbon Dioxide Level 26 mmol/L (21-32) Anion Gap 10 (6-14) Blood Urea Nitrogen 9 mg/dL (7-20) Creatinine 0.9 mg/dL (0.6-1.0) Estimated GFR (Cockcroft-Gault) 83.9 BUN/Creatinine Ratio 10 (6-20) Glucose Level 96 mg/dL (70-99) Calcium Level 8.7 mg/dL (8.5-10.1) Total Bilirubin 0.3 mg/dL (0.2-1.0) Aspartate Amino Transf (AST/SGOT) 16 U/L (15-37) Alanine Aminotransferase (ALT/SGPT) 18 U/L (14-59) Alkaline Phosphatase 113 U/L (46-116) Total Protein 7.5 g/dL (6.4-8.2) Albumin 3.2 g/dL (3.4-5.0) Albumin/Globulin Ratio 0.7 (1.0-1.7) Urine Collection Type Unknown Urine Color Red Urine Clarity Cloudy Urine pH 6.0 Urine Specific Sullivan 1.025 Urine Protein 100 mg/dL (NEG-TRACE) Urine Glucose (UA) Negative mg/dL (NEG) Urine Ketones (Stick) mg/dL (NEG) Urine Blood Large (NEG) Urine Nitrite (NEG) Urine Bilirubin (NEG) Urine Urobilinogen Dipstick 1.0 mg/dL (0.2 mg/dL) Urine Leukocyte Esterase Moderate (NEG) Urine RBC Tntc /HPF (0-2) Urine WBC 1-4 /HPF (0-4) Urine Squamous Epithelial Cells Few /LPF Urine Bacteria Moderate /HPF (0-FEW) Urine Hyaline Casts Occasional /HPF Urine Mucus Slight /LPF Problem List Problems Medical Problems: (1) Anemia Status: Acute (2) Vaginal bleeding Status: Acute Assessment/Plan A: AUB Fibroids Chronic blood loss anemia P: D/c home. Provera BID. F/u in 2 wks. SHERRY EDMONDSON Jr, MD Oct 30, 2018 08:21
--- NOTE | 2018-10-30 08:22 | DISCH ---
DISCHARGE INSTRUCTIONS Condition on Discharge Condition on Discharge: Stable Activity After Discharge Activity Instructions for Disc: Activity as tolerated Bathing Instructions: Shower-keep dressing dry, No Tub Bath until see Exercise Instruction after Dis: Progress as tolerated Driving Instructions after Dis: Do not drive today Weight Bearing Status after Di: No restrictions Diet after Discharge Diet after Discharge: Cardiac Diet Texture: Regular Liquid Texture: Thin Liquid Wound Incision Care Wound/Incision Care: Keep wound/cast CDI Checks after Discharge Checks after discharge: Check blood press - daily Contacting the DRJulieta after DC Call your doctor for: Concerns you may have Follow-Up Follow up with: Dr. Lorenzana in 2 wks Treatment/Equipment after DC Adaptive Equipment Issued: None SHERRY LORENZANA Jr, MD Oct 30, 2018 08:22
[2018-10-30] MEDS ORDERED: MEDR10TA PO (08:25)
[2018-10-30] MEDS: LOSARTAN POTASSIUM 50 MG TABLET. PO SCH (08:46)
[2018-10-30] MEDS: amLODIPine BESYLATE 5 MG TABLET PO SCH ×2 (08:46→09:21)
[2018-10-30] MEDS ORDERED: TRIAMTERENE/HCTZ 37.5/25MG TABLET. PO SCH (09:00)
--- NOTE | 2018-10-30 10:07 | NUR ---
FACULTY CO-SIGN I have reviewed the documentation by nursing unit coordinator:Ann Field
[2018-10-30 11:53] VITALS: BP 138/78
--- NOTE | 2018-10-30 12:15 | NUR ---
Pt. dc'd to home. DC instructions given to pt., v/u. Pt. continues to complain of weakness and mild dizziness when up, VSS and hemoglobin stable. notified, orders to continue iron supplement and follow-up in clinic. When giving DC instructions pt. states does not take some of the home meds listed. Encouraged pt. to continue meds ordered by and to follow-up with PCP as needed. Pt. to personal vehicle via W/C accompanied by RN.
== END 2018-10-30 12:15 | disposition home or self-care (01) | DRG 761 ==
LOC: ER 10:47 → 3 NORTH 14:55
PROVIDERS: ADMIT Obstetrics & Gynecology; ATTEND Obstetrics & Gynecology
PROC: 30233N1 Transfusion of Nonautologous Red Blood Cells into Peripheral Vein, Percutaneous Approach (ICD-10-PCS; principal; 2018-10-29)
DX: D25.9 Leiomyoma of uterus, unspecified (principal); D50.0 Iron deficiency anemia secondary to blood loss (chronic); I10 Essential (primary) hypertension; E78.5 Hyperlipidemia, unspecified; K21.9 Gastro-esophageal reflux disease without esophagitis; E11.9 Type 2 diabetes mellitus without complications; Z98.51 Tubal ligation status; Z90.49 Acquired absence of other specified parts of digestive tract; Z88.5 Allergy status to narcotic agent; Z88.8 Allergy status to other drugs, medicaments and biological substances; Z82.49 Family history of ischemic heart disease and other diseases of the circulatory system; Z83.3 Family history of diabetes mellitus
CPT/HCPCS: 36415; 76856; 80053; 81001; 85007; 85025; 85027; 85610; 85730; 86850; 86900; 86901; 86920; 87086; J7030; P9016; 99285-25; G0378

== ENCOUNTER 2018-11-22 14:38 | Emergency (ER) | payer SELFPAY ==
[~2018-11-22] VITALS: Ht 157.5 cm; Wt 131.5 kg
[~2018-11-22 14:38] MED LIST changes: +AMLO1CAP10 PO; -AMLO1CAP11 PO; +MEDR10TA PO
[2018-11-22] MEDS ORDERED: IV NORMAL SALINE 1000ML BAG 1,000 ML IV ONE (15:30)
[2018-11-22] MEDS ORDERED: fentaNYL PF VIAL 100 MCG/2 ML VIAL IV ONE (15:30)
[2018-11-22 15:37] LABS: BASO % 0 % (0-3); EOS # 0.2 x10^3/uL (0.0-0.7); EOS % 2 % (0-3); HEMATOCRIT 26.2 % (36.0-47.0); HEMOGLOBIN 7.7 g/dL (12.0-15.5); LYMPH # 2.5 x10^3/uL (1.0-4.8); LYMPH % 31 % (24-48); MEAN CORPUSCULAR HEMOGLOBIN 19 pg (25-35); MEAN CORPUSCULAR HGB CONC 30 g/dL (31-37); MEAN CORPUSCULAR VOLUME 64 fL (79-100); MONO # 0.4 x10^3/uL (0.0-1.1); MONO % 5 % (0-9); NEUT % 61 % (31-73); PLATELET COUNT 445 x10^3/uL (140-400); RED BLOOD COUNT 4.12 x10^6/uL (3.50-5.40); RED CELL DISTRIBUTION WIDTH 27.3 % (11.5-14.5); WHITE BLOOD COUNT 8.1 x10^3/uL (4.0-11.0)
[2018-11-22 15:48] LABS: PROTHROMBIN TIME PATIENT 13.5 SEC (11.7-14.0)
[2018-11-22 15:51] LABS: CALCIUM 8.3 mg/dL (8.5-10.1); CREATININE 1.1 mg/dL (0.6-1.0); GFR 66.6; POTASSIUM 3.8 mmol/L (3.5-5.1)
[2018-11-22 15:56] LABS: ALBUMIN/GLOBULIN RATIO 0.7 (1.0-1.7); TOTAL BILIRUBIN 0.2 mg/dL (0.2-1.0); TOTAL PROTEIN 7.2 g/dL (6.4-8.2)
[2018-11-22 16:31] LABS: ANISOCYTOSIS MARKED; HYPOCHROMIA MOD; MICROCYTOSIS MARKED; PLT ESTIMATE INCREASED (ADEQUATE); POLYCHROMASIA MOD
--- NOTE | 2018-11-22 17:13 | PHYS DOC ---
Past Medical History Past Medical History: Hypertension Additional Past Medical Histor: "fluid around my heart" Past Surgical History: Cholecystectomy, Tubal ligation, Other Additional Past Surgical Histo: hernia repair Alcohol Use: Rarely Drug Use: None Adult General Chief Complaint Chief Complaint: VAGINAL BLEEDING HPI HPI Patient is a 38 year old female presents with vaginal bleeding. She says that for a few hours throughout the day she is having to use one pad per hour increased this afternoon she got lightheaded she came to the emergency room for evaluation she has a known fibroid she has no chest pain or shortness of breath she is due to see Dr. EDMONDSON this coming Sunday in 4 days. Mild abdominal cramping lower nonradiating noted Review of Systems Review of Systems Constitutional: Denies fever or chills [] Eyes: Denies change in visual acuity, redness, or eye pain [] HENT: Denies nasal congestion or sore throat [] Respiratory: Denies cough or shortness of breath [] Cardiovascular: No additional information not addressed in HPI [] Neurologic: Denies headache, focal weakness or sensory changes [] Endocrine: Denies polyuria or polydipsia [] All other systems were reviewed and found to be within normal limits, except as documented in this note. Current Medications Current Medications Current Medications Medications (Trade) Dose Ordered Sig/Sharmaine Start Time Stop Time Status Last Admin Dose Admin Fentanyl Citrate (Fentanyl 2ml Vial) 50 mcg 1X ONCE 11/22/18 15:30 11/22/18 15:31 DC 11/22/18 15:35 50 MCG Sodium Chloride 1,000 ml @ 1,000 mls/hr 1X ONCE 11/22/18 15:30 11/22/18 16:29 DC 11/22/18 15:35 1,000 MLS/HR Allergies Allergies Allergies Coded Allergies Type Severity Reaction Last Updated Verified diphenhydramine Allergy Mild 12/27/16 Yes morphine Adverse Reaction Intermediate 06/20/17 Yes Physical Exam Physical Exam Constitutional: Well developed, well nourished, no acute distress, non-toxic appearance. [] HENT: Normocephalic, atraumatic, bilateral external ears normal, oropharynx moist, no oral exudates, nose normal. [] Eyes: PERRLA, EOMI, conjunctiva normal, no discharge. [] Neck: Normal range of motion, no tenderness, supple, no stridor. [] Cardiovascular:Heart rate regular rhythm, no murmur [] Lungs & Thorax: Bilateral breath sounds clear to auscultation [] Abdomen: Bowel sounds normal, soft, no tenderness, no masses, no pulsatile masses. [] Skin: Mild pallor : THERE IS NO ACTIVE BLEEDING THERE IS OLD BLOOD IN THE VAG VAULT Extremities: No tenderness, no cyanosis, no clubbing, ROM intact, no edema. [] Neurologic: Alert and oriented X 3, normal motor function, normal sensory function, no focal deficits noted. [] Psychologic: Affect normal, judgement normal, mood normal. [] Current Patient Data Vital Signs Vital Signs Date Time Temp Pulse Resp B/P (MAP) Pulse Ox O2 Delivery O2 Flow Rate FiO2 11/22/18 14:48 98.1 87 18 134/61 (85) 100 Room Air 98.1 Lab Values Laboratory Tests Test 11/22/18 15:00 White Blood Count 8.1 x10^3/uL (4.0-11.0) Red Blood Count 4.12 x10^6/uL (3.50-5.40) Hemoglobin 7.7 g/dL (12.0-15.5) L Hematocrit 26.2 % (36.0-47.0) L Mean Corpuscular Volume 64 fL (79-100) L Mean Corpuscular Hemoglobin 19 pg (25-35) L Mean Corpuscular Hemoglobin Concent 30 g/dL (31-37) L Red Cell Distribution Width 27.3 % (11.5-14.5) H Platelet Count 445 x10^3/uL (140-400) H Neutrophils (%) (Auto) 61 % (31-73) Lymphocytes (%) (Auto) 31 % (24-48) Monocytes (%) (Auto) 5 % (0-9) Eosinophils (%) (Auto) 2 % (0-3) Basophils (%) (Auto) 0 % (0-3) Neutrophils # (Auto) 5.0 x10^3uL (1.8-7.7) Lymphocytes # (Auto) 2.5 x10^3/uL (1.0-4.8) Monocytes # (Auto) 0.4 x10^3/uL (0.0-1.1) Eosinophils # (Auto) 0.2 x10^3/uL (0.0-0.7) Basophils # (Auto) 0.0 x10^3/uL (0.0-0.2) Platelet Estimate Increased (ADEQUATE) Polychromasia Mod Hypochromasia Mod Anisocytosis Marked Microcytosis Marked Prothrombin Time 13.5 SEC (11.7-14.0) Prothrombin Time INR 1.1 (0.8-1.1) Sodium Level 142 mmol/L (136-145) Potassium Level 3.8 mmol/L (3.5-5.1) Chloride Level 105 mmol/L (98-107) Carbon Dioxide Level 26 mmol/L (21-32) Anion Gap 11 (6-14) Blood Urea Nitrogen 11 mg/dL (7-20) Creatinine 1.1 mg/dL (0.6-1.0) H Estimated GFR (Cockcroft-Gault) 66.6 BUN/Creatinine Ratio 10 (6-20) Glucose Level 86 mg/dL (70-99) Calcium Level 8.3 mg/dL (8.5-10.1) L Total Bilirubin 0.2 mg/dL (0.2-1.0) Aspartate Amino Transferase (AST) 15 U/L (15-37) Alanine Aminotransferase (ALT) 18 U/L (14-59) Alkaline Phosphatase 97 U/L (46-116) Total Protein 7.2 g/dL (6.4-8.2) Albumin 3.0 g/dL (3.4-5.0) L Albumin/Globulin Ratio 0.7 (1.0-1.7) L Laboratory Tests 11/22/18 15:00 Laboratory Tests 11/22/18 15:00 EKG EKG [] Radiology/Procedures Radiology/Procedures [] Course & Med Decision Making Course & Med Decision Making Pertinent Labs and Imaging studies reviewed. (See chart for details) []Dysfunctional uterine bleeding 38-year-old female known fibroid has follow-up this Sunday with UI ENGINEER for discussion of hysterectomy. Hemoglobin is 7.7 it was 7.7 after her last transfusion she is stable vital signs are stable she is a little lightheaded but she is walking in the emergency room with a steady gait I did talk to Dr. EDMONDSON REGARDING THIS AND HE AGREES TO SEE ON SUNDAY AND MAKE SURE TAKING PROVERA BID SHE REPORTS COMPLIANCE WITH HER MEDDS. RETURN PREC REVIEWED Ion Disclaimer Ion Disclaimer This electronic medical record was generated, in whole or in part, using a voice recognition dictation system. Departure Departure Impression: Primary Impression: Abnormal uterine bleeding (AUB) Disposition: 01 HOME, SELF-CARE Condition: STABLE Referrals: RADHA HEALY MD (PCP) Patient Instructions: Abnormal Uterine Bleeding BALWINDER YUNG MD Nov 22, 2018 17:13
[2018-11-22 18:21] VITALS: BP 141/68
[2018-11-22] MEDS ORDERED: SCOPOLAMINE 1.5MG PATCH. TD ONE (18:45)
[2018-11-22] MEDS ORDERED: MECLIZINE HCL 12.5 MG TABLET. PO ONE (18:45)
[2018-11-22] MEDS ORDERED: MECL25TA3 PO (18:59)
[2018-11-22] MEDS ORDERED: SCOP1PAT11 TP (18:59)
== END 2018-11-22 19:12 | disposition home or self-care (01) ==
LOC: ER 14:38
DX: N93.8 Other specified abnormal uterine and vaginal bleeding (principal); R42 Dizziness and giddiness; R23.1 Pallor; I10 Essential (primary) hypertension; Z90.49 Acquired absence of other specified parts of digestive tract; Z98.51 Tubal ligation status; Z88.5 Allergy status to narcotic agent; Z88.8 Allergy status to other drugs, medicaments and biological substances
CPT/HCPCS: 36415; 80053; 81025; 85025; 85610; 86850; 86900; 86901; 96361; 96374; 99283; J3010; J7030; J8597

== ENCOUNTER 2021-01-11 04:55 | Emergency (ER) | payer OTHER ==
[~2021-01-11] VITALS: Ht 157.5 cm; Wt 131.1 kg
[~2021-01-11 04:55] MED LIST changes: +AMLO-187 PO; -AMLO10TA8 PO; -AMLO1CAP10 PO; +AMLO1CAP11 PO; -ASPI-612 PO; +ASPI-886 PO; +MECL-75 PO; +SCOP1PAT11 TP
--- NOTE | 2021-01-11 05:15 | PHYS DOC ---
Past Medical History Past Medical History: Hypertension Additional Past Medical Histor: obesity (PARISH MAYORGA DO) Past Surgical History: Cholecystectomy, Hysterectomy, Tubal ligation, Other Additional Past Surgical Histo: hernia repair (PARISH MAYORGA DO) Smoking Status: Current Every Day Smoker Alcohol Use: Rarely Drug Use: None Social History Narrative: kaden aguilar (PARISH MAYORGA DO) General Adult EDM: Chief Complaint: ABDOMINAL PAIN HPI: HPI: Patient is a 40 year old female who presents to the ED via EMS with a chief complaint of abdominal pain x2 days. Location is lower bilaterally, duration is constant, character is described as sharp and tightness. Associated symptoms are nausea. Patient denies chest pain, shortness of breath, vomiting, diarrhea, constipation, fevers, or abdominal trauma. Patient reports she has a history of hernia requiring surgical repair and cholecystectomy. Patient states that she has noticed a large part abdominal protrusion the past 2 days and tonight woke her up with significant pain. Patient reports no changes she had a hysterectomy. Patient states she had to bowel movements today of normal caliber. (PARISH MAYORGA DO) Review of Systems: Review of Systems: Constitutional: Denies fever or chills Eyes: Denies redness or eye pain HENT: Denies nasal congestion or sore throat Respiratory: Denies cough or shortness of breath Cardiovascular: Denies chest pain or palpitations GI: Reports abdominal pain and lower abdominal fullness. Denies vomiting, diarrhea, or constipation. : Denies dysuria or hematuria Musculoskeletal: Denies back pain or joint pain Integument: Denies rash or skin lesions Neurologic: Denies headache, focal weakness or sensory changes Complete systems were reviewed and found to be within normal limits, except as documented in this note. (PARISH MAYORGA DO) Heart Score: C/O Chest Pain: N/A (PARISH MAYORGA DO) Allergies: Allergies: Allergies Coded Allergies Type Severity Reaction Last Updated Verified diphenhydramine Allergy Mild 12/27/16 Yes morphine Adverse Reaction Intermediate 06/20/17 Yes (PARISH MAYORGA DO) Physical Exam: PE: Constitutional: Well developed, well nourished, patient is in moderate distress and tearful. HENT: Normocephalic, atraumatic Eyes: Conjunctiva normal, no discharge Neck: Normal range of motion, no tenderness, supple Lungs & Thorax: No respiratory distress, equal chest rise and fall Abdomen: Obese abdomen, large lower abdominal protrusion beneath the umbilicus is nonreducible has no overlying skin changes. No epigastric tenderness. Healed umbilical surgical scar. Skin: Warm, dry, no erythema, no rash Back: No tenderness, no CVA tenderness Extremities: No tenderness, ROM intact, no edema Neurologic: Alert and oriented X 3, normal motor function, normal sensory function, no focal deficits noted Psychologic: Affect normal, judgment normal (PARISH MAYORGA DO) Current Patient Data: Vital Signs: Vital Signs Date Time Temp Pulse Resp B/P (MAP) Pulse Ox O2 Delivery O2 Flow Rate FiO2 01/11/21 04:56 97.8 92 28 165/78 (107) 99 Room Air 97.8 (PARISH MAYORGA DO) EKG: EKG: @0520 NSR at 88bpm, NO ST elevation,QRS 84ms, QT/QTc 354/432ms (PARISH MAYORGA DO) Radiology/Procedures: Radiology/Procedures: [] (PARISH MAYORGA DO) Course & Med Decision Making: Course & Med Decision Making Pertinent Labs and Imaging studies reviewed. (See chart for details) Patient is a 40-year-old female presents to ED with abdominal pain and abdominal fullness/mass x2 days. Patient's has a history of hernia with surgical repair as well as hysterectomy and cholecystectomy. Remarkable for a large abdominal protrusion that is nonreducible and without overlying skin changes. Labs obtained and partially pending. CT abd/pelvis pending. Symptomatic treatment provided with interval improvement. 0600- Sign out given to Dr. Varela for further evaluation and final disposition. Discussed current findings and plan with patient, who acknowledges understanding and agreement. (PARISH MAYORGA DO) Course & Med Decision Making Assumed care of patient at check out from Dr. Mayorga. At check out, lab work and CT abdomen pelvis were pending and patient is stable. At this time, patient CT shows a large hernia that does not show signs of incarceration or strangulation. Patient did require a single dose of pain medicine while I was caring for her. On reevaluation patient is pain-free. I have discussed the results of her lab and CT work-up with her. I have given her the option of admission versus going home to follow-up outpatient with surgery. Her abdomen is soft and nontender at this time. Patient has opted to follow-up in surgery clinic with Dr. Carrizales. We have discussed the signs and symptoms of incarcerated and strangulated bowel. Patient states that she will return to the emergency room if she develops any of the symptoms or has any other concerns. Patient's test results and vitals while in the ED were fully reviewed and discussed with the patient. Patient is stable and at this time does not need admission to the hospital. We have discussed strict return precautions and the importance of following up with their Primary Care Physician. Patient stated understanding and was given an opportunity to ask any questions. Patient is in agreement with plan. (SERAFIN VARELA MD) Dragon Disclaimer: Dragon Disclaimer: This electronic medical record was generated, in whole or in part, using a voice recognition dictation system. (PARISH MAYORGA DO) Departure Departure Impression: Primary Impression: Abdominal pain Qualified Codes: R10.30 - Lower abdominal pain, unspecified Additional Impression: Hernia of abdominal wall Disposition: HOME / SELF CARE / HOMELESS Condition: IMPROVED Referrals: JESUS JOSEPH JR, MD (PCP) MICHAEL CARRIZALES MD Patient Instructions: Hernia Scripts Oxycodone/Apap 5-325 (PERCOCET 5-325 MG TABLET ) 1 Each Tablet 1 TAB PO PRN Q6HRS PRN for PAIN, #8 TAB 0 Refills Prov: SERAFIN VARELA MD 01/11/21 PARISH MAYORGA DO Jan 11, 2021 05:14 SERAFIN VARELA MD Jan 11, 2021 08:43
[2021-01-11] MEDS: ONDANSETRON PF 4 MG/2 ML VIAL. IVP ONE (05:16)
[2021-01-11] MEDS: fentaNYL PF VIAL 100 MCG/2 ML VIAL IVP ONE ×2 (05:16→07:27)
[2021-01-11] MEDS: FAMOTIDINE 20 MG/2 ML VIAL IVP ONE (05:17)
[2021-01-11 05:39] LABS: BILIRUBIN,URINE NEGATIVE (NEG); CLARITY,URINE CLEAR; COLOR,URINE YELLOW; NITRITE,URINE NEGATIVE (NEG); PROTEIN,URINE 30 mg/dL (NEG-TRACE)
--- NOTE | 2021-01-11 05:42 | EKG ---
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
[2021-01-11 05:46] LABS: BASO % 1 % (0-3); EOS # 0.3 x10^3/uL (0.0-0.7); EOS % 5 % (0-3); HEMATOCRIT 37.9 % (36.0-47.0); HEMOGLOBIN 12.6 g/dL (12.0-15.5); LYMPH # 2.3 x10^3/uL (1.0-4.8); LYMPH % 31 % (24-48); MEAN CORPUSCULAR HEMOGLOBIN 28 pg (25-35); MEAN CORPUSCULAR HGB CONC 33 g/dL (31-37); MEAN CORPUSCULAR VOLUME 85 fL (79-100); MONO # 0.5 x10^3/uL (0.0-1.1); MONO % 7 % (0-9); NEUT # 4.3 x10^3/uL (1.8-7.7); NEUT % 57 % (31-73); PLATELET COUNT 369 x10^3/uL (140-400); RED BLOOD COUNT 4.46 x10^6/uL (3.50-5.40); RED CELL DISTRIBUTION WIDTH 14.7 % (11.5-14.5); WHITE BLOOD COUNT 7.6 x10^3/uL (4.0-11.0)
[2021-01-11 05:50] LABS: BACTERIA,URINE FEW /HPF (0-FEW)
[2021-01-11 06:37] LABS: CALCIUM 7.9 mg/dL (8.5-10.1); CREATININE 0.9 mg/dL (0.6-1.0); GFR 83.1; POTASSIUM 3.6 mmol/L (3.5-5.1)
[2021-01-11 06:43] LABS: ALBUMIN 2.8 g/dL (3.4-5.0); ALBUMIN/GLOBULIN RATIO 0.8 (1.0-1.7); MAGNESIUM 2.1 mg/dL (1.8-2.4); TOTAL BILIRUBIN 0.2 mg/dL (0.2-1.0); TOTAL PROTEIN 6.3 g/dL (6.4-8.2)
[2021-01-11] MEDS ORDERED: CONTRAST GIVEN. MC PRN (06:45)
[2021-01-11] MEDS: IOHEXOL 300 MG/ML 100ML VIAL. IV ONE (07:09)
--- NOTE | 2021-01-11 07:24 | RAD ---
CT ABDOMEN+PELVIS W History: abdominal pain, hx of hernia, eval for incarceration Comparison: None. Technique: After administration of intravenous contrast, helical CT of the abdomen and pelvis was per formed from the lung bases through the ischial tuberosities. Coronal and sagittal reconstructions wer e obtained. 75 mL of Omnipaque 300 were used. One or more of the following dose reduction techniques were utilized: Automated exposure control (AEC), Adjustment of mA and/or kV according to patient size , Use of iterative reconstruction technique such as ASiR, CT scan done according to ALARA and image g ently/image wisely Abdomen Findings: The visualized lung bases are clear. The liver, pancreas, spleen, and bilateral adrenal glands are normal. Cholecystectomy. Symmetric renal enhancement. There is no focal renal mass. There is no hydronephrosis. Large infraumbilical hernia containing multiple loops of small bowel. No evidence of obstruction or i ncarceration. Appendix is normal. There is no free fluid. There is no mesenteric or retroperitoneal adenopathy. The abdominal aorta is normal in caliber. Pelvis Findings: Urinary bladder is normal. Hysterectomy. No pelvic free fluid. There is no pelvic or inguinal adenopa thy. There is no acute bony abnormality. IMPRESSION: Large infraumbilical hernia containing multiple loops of small bowel. No evidence of obstruction or i ncarceration. Electronically signed by: Ed Montenegro MD (01/11/2021 7:21 AM) [id number]
[2021-01-11 08:32] VITALS: BP 161/89
[2021-01-11] MEDS ORDERED: OXYC1TAB15 PO (08:41)
== END 2021-01-11 09:30 | disposition home or self-care (01) ==
LOC: ER 04:55
DX: K43.9 Ventral hernia without obstruction or gangrene (principal); I10 Essential (primary) hypertension; Z90.49 Acquired absence of other specified parts of digestive tract; Z90.710 Acquired absence of both cervix and uterus; Z98.51 Tubal ligation status; Z98.890 Other specified postprocedural states; F17.200 Nicotine dependence, unspecified, uncomplicated; E66.9 Obesity, unspecified; Z68.43 Body mass index [BMI] 50.0-59.9, adult; Z88.5 Allergy status to narcotic agent
CPT/HCPCS: 36415; 74177; 80053; 81001; 82553; 83605; 83690; 83735; 84484; 85025; 87086; 93005; 96374; 96375; 96376; 99285; J2405; J3010; J3490; Q9967

== ENCOUNTER 2021-03-28 14:03 | Emergency (ER) | payer OTHER ==
[~2021-03-28] VITALS: Ht 157.5 cm; Wt 142.8 kg
[~2021-03-28 14:03] MED LIST changes: +OXYC1TAB15 PO
[2021-03-28 15:00] LABS: BASO # 0.1 x10^3/uL (0.0-0.2); BASO % 1 % (0-3); EOS # 0.1 x10^3/uL (0.0-0.7); EOS % 1 % (0-3); HEMATOCRIT 39.6 % (36.0-47.0); HEMOGLOBIN 12.9 g/dL (12.0-15.5); LYMPH # 2.4 x10^3/uL (1.0-4.8); LYMPH % 33 % (24-48); MEAN CORPUSCULAR HEMOGLOBIN 28 pg (25-35); MEAN CORPUSCULAR HGB CONC 33 g/dL (31-37); MEAN CORPUSCULAR VOLUME 86 fL (79-100); MONO # 0.4 x10^3/uL (0.0-1.1); MONO % 5 % (0-9); NEUT # 4.5 x10^3/uL (1.8-7.7); NEUT % 61 % (31-73); PLATELET COUNT 379 x10^3/uL (140-400); RED BLOOD COUNT 4.58 x10^6/uL (3.50-5.40); RED CELL DISTRIBUTION WIDTH 14.6 % (11.5-14.5); WHITE BLOOD COUNT 7.4 x10^3/uL (4.0-11.0)
[2021-03-28 15:06] LABS: BILIRUBIN,URINE NEGATIVE (NEG); CLARITY,URINE CLEAR; COLOR,URINE YELLOW; NITRITE,URINE NEGATIVE (NEG); PROTEIN,URINE NEGATIVE (NEG-TRACE); UROBILINOGEN,URINE 0.2 mg/dL (0.2 mg/dL)
[2021-03-28 15:13] LABS: BACTERIA,URINE FEW /HPF (0-FEW); RBC,URINE 0 /HPF (0-2)
[2021-03-28 15:15] LABS: TRICHOMONAS,URINE PRESENT; WBC,URINE OCC /HPF (0-4)
[2021-03-28 15:16] LABS: CALCIUM 8.7 mg/dL (8.5-10.1); CREATININE 0.9 mg/dL (0.6-1.0); GFR 83.1; POTASSIUM 3.3 mmol/L (3.5-5.1)
--- NOTE | 2021-03-28 15:16 | RAD ---
INDICATION: Reason: headache, dizziness / Spl. Instructions: / History: COMPARISON: None. TECHNIQUE: Axial CT images obtained through the head without intravenous contrast. One or more of the following individualized dose reduction techniques were utilized for this examinat ion: 1. Automated exposure control; 2. Adjustment of the mA and/or kV according to patient size; 3 . Use of iterative reconstruction technique. FINDINGS: No intracranial hemorrhage. No midline shift. Basal cisterns patent. Ventricles and sulci are unremarkable. No acute osseous abnormality. Orbits and paranasal sinuses unremarkable. There is some calcifications along the falx and tentorium. IMPRESSION: * No acute intracranial hemorrhage. Electronically signed by: Dennis Barrera MD (03/28/2021 3:14 PM) [id number]
[2021-03-28 15:18] LABS: ALBUMIN 3.5 g/dL (3.4-5.0); ALBUMIN/GLOBULIN RATIO 0.9 (1.0-1.7); TOTAL BILIRUBIN 0.3 mg/dL (0.2-1.0); TOTAL PROTEIN 7.6 g/dL (6.4-8.2)
--- NOTE | 2021-03-28 15:23 | EKG ---
[facility] [address] [place] [address] Test Date: 2021-03-28 Test Time: 14:22:24 Pat Name: KRISSY CASEY Department: Room: Gender: F General Ledger Accountant: : 1980 Requested By: SERAFIN DORAN Order Number: [id number] Reading MD: Measurements Intervals [place] Rate: 85 P: 44 LA: 140 QRS: 6 QRSD: 100 T: 13 QT: 374 QTc: 445 Interpretive Statements SINUS RHYTHM QRS(T) CONTOUR ABNORMALITY CONSIDER ANTEROLATERAL MYOCARDIAL DAMAGE POSSIBLY ABNORMAL ECG RI6.01 No previous ECG available for comparison
[2021-03-28] MEDS ORDERED: KETOROLAC 30 MG/ML VIAL. IVP ONE (15:30)
[2021-03-28] MEDS ORDERED: ONDANSETRON PF 4 MG/2 ML VIAL. IVP ONE (15:30)
[2021-03-28] MEDS ORDERED: IV NORMAL SALINE 1000ML BAG 1,000 ML IV ONE (15:30)
[2021-03-28] MEDS ORDERED: DEXAMETHASONE SOD PHOS 4 MG/ML VIAL IVP ONE (15:30)
[2021-03-28] MEDS ORDERED: metroNIDAZOLE 500 MG TABLET PO ONE (15:30)
[2021-03-28] MEDS ORDERED: PROCHLORPERAZINE 10 MG/2 ML VIAL. IV ONE (15:30)
[2021-03-28] MEDS ORDERED: cefTRIAXone IV Push 1 GM VIAL. IVP ONE (15:45)
--- NOTE | 2021-03-28 16:03 | ED.ADGEN ---
Past Medical History Past Medical History: Hypertension Additional Past Medical Histor: obesity Past Surgical History: Cholecystectomy, Hysterectomy, Tubal ligation, Other Additional Past Surgical Histo: hernia repair Smoking Status: Current Every Day Smoker Alcohol Use: Rarely Drug Use: None General Adult EDM: Chief Complaint: NEURO SYMPTOMS/DEFICITS HPI: HPI: Patient is a 40-year-old female past medical history of hypertension who presents to the emergency room complaining of headache, left-sided paresthesias, fatigue that started yesterday. She states that she woke up with a headache in the middle of the night. The headache is sharp in nature and frontal. It is constant. She states she noticed this tingly feeling on the left side of her b jesus. She states she is able to feel everything on that side of the body and does not have any difficulty moving her body. She denies any, fever, neck stiffness, confusion, speech difficulties. She does feel like she has to think really hard and feels distant. She denies any kind of trauma. Review of Systems: Review of Systems: Complete ROS is negative unless otherwise documented in HPI Current Medications: Current Medications Medications (Trade) Dose Ordered Sig/Sharmaine Start Time Stop Time Status Last Admin Dose Admin Ceftriaxone Sodium (Rocephin) 1 gm 1X ONCE 03/28/21 15:45 03/28/21 15:46 DC 03/28/21 16:02 1 GM Dexamethasone Sodium Phosphate (Decadron) 10 mg 1X ONCE 03/28/21 15:30 03/28/21 15:31 DC 03/28/21 15:39 10 MG Ketorolac Tromethamine (Toradol 30mg Vial) 30 mg 1X ONCE 03/28/21 15:30 03/28/21 15:31 DC 03/28/21 15:40 30 MG Metronidazole (Flagyl) 2,000 mg 1X ONCE 03/28/21 15:30 03/28/21 15:31 DC 03/28/21 15:40 2,000 MG Ondansetron HCl (Zofran) 4 mg 1X ONCE 03/28/21 15:30 03/28/21 15:31 DC 03/28/21 15:39 4 MG Prochlorperazine Edisylate (Compazine) 10 mg 1X ONCE 03/28/21 15:30 03/28/21 15:31 DC 03/28/21 15:40 10 MG Sodium Chloride 1,000 ml @ 0 mls/hr Q0M ONCE 03/28/21 15:30 03/28/21 15:31 DC 03/28/21 15:37 1,000 MLS/HR Allergies: Allergies: Allergies Coded Allergies Type Severity Reaction Last Updated Verified diphenhydramine Allergy Mild 12/27/16 Yes morphine Adverse Reaction Intermediate 06/20/17 Yes Physical Exam: PE: General: Awake, alert, NAD. Well Nourished, well hydrated. Cooperative HEENT: Atraumatic, EOMI, PERRL, airway patent, moist oral mucosa Neck: Supple, trachea midline Respiratory: CTA bilaterally, normal effort, no wheezing/crackles CV: RRR, no murmur, cap refill <2 GI: Soft, nondistended, nontender, no masses MSK: No obvious deformities Skin: Warm, dry, intact Neuro: A&O x3, speech NL, 5/5 strength in BUE/BLE distally and proximally, CN 2- 12 intact, cerebellar testing normal Psych: Normal affect, normal mood, not suicidal or homicidal Current Patient Data: Labs: Laboratory Tests Test 03/28/21 14:35 03/28/21 14:39 03/28/21 15:02 White Blood Count 7.4 x10^3/uL (4.0-11.0) Red Blood Count 4.58 x10^6/uL (3.50-5.40) Hemoglobin 12.9 g/dL (12.0-15.5) Hematocrit 39.6 % (36.0-47.0) Mean Corpuscular Volume 86 fL (79-100) Mean Corpuscular Hemoglobin 28 pg (25-35) Mean Corpuscular Hemoglobin Concent 33 g/dL (31-37) Red Cell Distribution Width 14.6 % (11.5-14.5) H Platelet Count 379 x10^3/uL (140-400) Neutrophils (%) (Auto) 61 % (31-73) Lymphocytes (%) (Auto) 33 % (24-48) Monocytes (%) (Auto) 5 % (0-9) Eosinophils (%) (Auto) 1 % (0-3) Basophils (%) (Auto) 1 % (0-3) Neutrophils # (Auto) 4.5 x10^3/uL (1.8-7.7) Lymphocytes # (Auto) 2.4 x10^3/uL (1.0-4.8) Monocytes # (Auto) 0.4 x10^3/uL (0.0-1.1) Eosinophils # (Auto) 0.1 x10^3/uL (0.0-0.7) Basophils # (Auto) 0.1 x10^3/uL (0.0-0.2) Sodium Level 137 mmol/L (136-145) Potassium Level 3.3 mmol/L (3.5-5.1) L Chloride Level 101 mmol/L (98-107) Carbon Dioxide Level 27 mmol/L (21-32) Anion Gap 9 (6-14) Blood Urea Nitrogen 9 mg/dL (7-20) Creatinine 0.9 mg/dL (0.6-1.0) Estimated GFR (Cockcroft-Gault) 83.1 BUN/Creatinine Ratio 10 (6-20) Glucose Level 94 mg/dL (70-99) Calcium Level 8.7 mg/dL (8.5-10.1) Total Bilirubin 0.3 mg/dL (0.2-1.0) Aspartate Amino Transferase (AST) 19 U/L (15-37) Alanine Aminotransferase (ALT) 23 U/L (14-59) Alkaline Phosphatase 109 U/L (46-116) Troponin I Quantitative < 0.017 ng/mL (0.000-0.055) Total Protein 7.6 g/dL (6.4-8.2) Albumin 3.5 g/dL (3.4-5.0) Albumin/Globulin Ratio 0.9 (1.0-1.7) L Urine Collection Type Unknown Urine Color Yellow Urine Clarity Clear Urine pH 7.0 (<5.0-8.0) Urine Specific Gower <=1.005 (1.000-1.030) Urine Protein Negative mg/dL (NEG-TRACE) Urine Glucose (UA) Negative mg/dL (NEG) Urine Ketones (Stick) Negative mg/dL (NEG) Urine Blood Negative (NEG) Urine Nitrite Negative (NEG) Urine Bilirubin Negative (NEG) Urine Urobilinogen Dipstick 0.2 mg/dL (0.2 mg/dL) Urine Leukocyte Esterase Negative (NEG) Urine RBC 0 /HPF (0-2) Urine WBC Occ /HPF (0-4) Urine Squamous Epithelial Cells Mod /LPF Urine Bacteria Few /HPF (0-FEW) Urine Trichomonas Present POC Urine HCG, Qualitative Hcg negative (Negative) Laboratory Tests 03/28/21 14:35 Laboratory Tests 03/28/21 14:35 Vital Signs: Vital Signs Date Time Temp Pulse Resp B/P (MAP) Pulse Ox O2 Delivery O2 Flow Rate FiO2 03/28/21 14:30 97.7 88 24 178/113 (134) 97 Room Air 97.7 EKG: EKG: [] Heart Score: C/O Chest Pain: N/A Risk Factors: Risk Factors: DM, Current or recent (<one month) smoker, HTN, HLP, family history of CAD, obesity. Risk Scores: Score 0 - 3: 2.5% MACE over next 6 weeks - Discharge Home Score 4 - 6: 20.3% MACE over next 6 weeks - Admit for Clinical Observation Score 7 - 10: 72.7% MACE over next 6 weeks - Early Invasive Strategies Radiology/Procedures: Radiology/Procedures: [] Course & Med Decision Making: Course & Med Decision Making Pertinent Labs and Imaging studies reviewed. (See chart for details) Patient is a 40-year-old female presents to the emergency room complaining of headache with left-sided paresthesias. Patient has a normal neurologic exam with an NIH of 0. CT head will be done to rule out any signs of intracranial hemorrhage. It is possible that this could be related to a TIA versus atypical migraine versus minor stroke. Given patient's neurologic exam and headache I do feel that atypical migraine is most likely. She will be treated with migraine medication and will be reevaluated. CT head is unremarkable. UA does show trichomonas. Patient will be treated for trichomonas and empirically for gonorrhea and chlamydia. I have discussed this with the patient. Patient symptoms completely resolved as her headache resolved. She is requesting to go home and follow-up with her primary doctor. As patient does not have any neurologic symptoms at this time I do feel that it is appropriate for her to go home. Patient's test results and vitals while in the ED were fully reviewed and discussed with the patient. Patient is stable and at this time does not need admission to the hospital. We have discussed strict return precautions and the importance of following up with their Primary Care Physician. Patient stated understanding and was given an opportunity to ask any questions. Patient is in agreement with plan. Dragon Disclaimer: Dragon Disclaimer: This electronic medical record was generated, in whole or in part, using a voice recognition dictation system. Departure Departure Impression: Primary Impression: Headache Additional Impressions: Paresthesia Trichomonal urethritis Disposition: HOME / SELF CARE / HOMELESS Condition: IMPROVED Referrals: JESUS JOSEPH JR, MD (PCP) Patient Instructions: Migraine Headache, Trichomoniasis Scripts Doxycycline Hyclate (DOXYCYCLINE HYCLATE) 100 Mg Capsule 1 CAP PO BID, #14 CAP Prov: SERAFIN DORAN MD 03/28/21 Problem Qualifiers SERAFIN DORAN MD Mar 28, 2021 16:03
[2021-03-28 16:04] VITALS: BP 149/70
[2021-03-28] MEDS ORDERED: DOXY100C2 PO (16:28)
== END 2021-03-28 16:41 | disposition home or self-care (01) ==
LOC: ER 14:03
DX: A59.03 Trichomonal cystitis and urethritis (principal); R51.9 Headache, unspecified; R20.2 Paresthesia of skin; R53.83 Other fatigue; I10 Essential (primary) hypertension; F17.200 Nicotine dependence, unspecified, uncomplicated; E66.9 Obesity, unspecified; Z68.43 Body mass index [BMI] 50.0-59.9, adult; Z88.8 Allergy status to other drugs, medicaments and biological substances; Z88.5 Allergy status to narcotic agent
CPT/HCPCS: 36415; 70450; 80053; 81001; 81025; 84484; 85025; 87491; 87591; 93005; 96374; 96375; 99285; J0696; J0780; J1100; J1885; J2405; J7030